=== PATIENT | male | born 1955 | race Caucasian/White ===

== ENCOUNTER 2017-06-21 19:30 | Inpatient (IN) | payer OTHER ==
[~2017-06-21] VITALS: Ht 177.8 cm; Wt 86.2 kg
--- NOTE | 2017-06-21 19:43 | ED AMS/SEIZURE/WEAK/DIZZY ---
History of Present Illness General Chief Complaint: Altered Mental Status Stated Complaint: AMS Source: family, old records, EMS Exam Limitations: confusion Vital Signs & Intake/Output Vital Signs & Intake/Output Vital Signs Date Time Temp Pulse Resp B/P B/P Pulse O2 O2 Flow FiO2 Mean Ox Delivery Rate 06/21 2257 75 155/93 06/21 2152 76 178/99 06/21 2134 97.3 76 16 178/99 97 Room Air 06/21 1956 Room Air 06/21 1934 97.2 77 20 187/111 97 Room Air Allergies Coded Allergies: NO KNOWN ALLERGIES (05/12/13) NKDA PER POST OP ORDER SHEET OF 05/12/13 - S Triage Note: PT BIBA PER FAMILY PT IS VERY CONFUSED, PER FAMILY HE HAS NOT SEEN A DOCTOR IN 4 YEARS. PER FAMILY PT IS AOX4. HX OF HTN AND DM EMS STATES FINGER STICK 123. #18 LAC EST IN THE FIELD Triage Nurses Notes Reviewed? yes Onset: Gradual Duration: constant Timing: recent history Injury Environment: home Severity: severe Severity Numbers: 10 HPI: Patient is a 62-year-old male with a past medical history of coronary artery disease, hypertension, hyperlipidemia, diabetes, right carotid endarterectomy performed approximately 4 years ago in which history is limited due to significant altered mental status on arrival however EMS state that they received a call in which a family member was concerned of talking with the patient over the phone and noted that the patient significantly altered due to his baseline mental status, EMS state the patient was afebrile blood sugar 123 and hypertensive on arrival Family does present to the emergency room in which and sons state that the last time that they saw patient in his normal state of health was [place] They do present concerns of recent alcohol significant use and poorly unkempt hygiene especially to his bilateral lower extremity They state the patient keeps to himself recently due to a significant disagreement in the spring Patient's history is limited due to significant confusion however he states he denies fever chills headache chest pain shortness of breath nausea vomiting abdominal pain (Yohan Waite) Past History Travel History Traveled to [place] past 21 day No Medical History Any Pertinent Medical History? see below for history Cardiovascular: hypertension, hyperlipidemia Endocrine: diabetes History of MRSA: No History of VRE: No History of CDIFF: No Surgical History Surgical History: unobtainable Psychosocial History Who do you live with Spouse Services at Home None What is your primary language Armenian Family History Hx Contributory? No (Yohan Waite) Review of Systems Review of Systems Constitutional: Reports: see HPI, malaise. EENTM: Reports: no symptoms. Respiratory: Reports: no symptoms. Cardiovascular: Reports: no symptoms. GI: Reports: no symptoms. Genitourinary: Reports: no symptoms. Musculoskeletal: Reports: no symptoms. Skin: Reports: see HPI. Neurological/Psychological: Reports: see HPI, confusion. Hematologic/Endocrine: Reports: no symptoms. Immunologic/Allergic: Reports: no symptoms. All Other Systems: Reviewed and Negative (Yohan Waite) Physical Exam Physical Exam General Appearance: no apparent distress, comfortable Head: atraumatic Eyes: Bilateral: normal appearance, PERRL, EOMI. Ears, Nose, Throat: normal pharynx, normal ENT inspection, hearing grossly normal Neck: normal inspection, full range of motion Respiratory: normal breath sounds, chest non-tender, no respiratory distress Cardiovascular: regular rate/rhythm Peripheral Pulses: 2+ radial (R) Gastrointestinal: normal bowel sounds, soft, non-tender Back: normal inspection Neurologic/Psych: no motor/sensory deficits, disoriented x 3 Comments: Right foot and lower extremity SIGNIFICANT noted dark debris AND DIRT Dermatomes decreased sensation noted fourth toe was removed Pedal pulses +2 Left foot and lower extremity notice significant dark debris and dirt decreased dermatome sensation pedal pulse +2 Negative Brudzinski negative Kernig sign Core Measures ACS in differential dx? No CVA/TIA Diagnosis Yes NIH Stroke Scale (24 Hours) NIH Stroke Scale (24 Hours) Response Value Level of Consciousness drowsy 1 LOC Questions answers one correctly 1 LOC Commands obeys one correctly 1 Best Gaze normal 0 Visual [place] no visual loss 0 Facial Paresis partial 2 Motor Arm - Left no drift 0 Motor Arm - Right no drift 0 Motor Leg - Left no drift 0 Motor Leg - Right no drift 0 Limb Ataxia no ataxia 0 Best Language mild to moderate aphasia 1 Dysarthria mild/mod slurring words 1 Total 7 Date Last Known Well 06/18/17 Swallow Evaluation Pass Swallow eval date 06/21/17 Swallow eval time 2142 Sepsis Present: No Sepsis Focused Exam Completed? No (Yohan Waite) Progress Differential Diagnosis: arrythmia, alcohol intoxication, anemia, benign positional vertigo, CVA/stroke, dehydration, drug intoxication, encephalitis, electrolyte imbalance, GI bleed, hypoglycemia, hypoxia, intracranial Hem., intracranial mass/tumor, labrynthitis, meningitis, Meniere's disease, migraine MANCILLA, multiple sclerosis, pneumonia, postural hypotension, presyncope, post- traumatic vertigo, sepsis, seizure disorder, subarachnoid Hem., UTI/pyelo, vertebrobasilar insuff Plan of Care: Orders Procedure Date/time Status Regular Diet 06/22 B Active SPEECH EVALUATION 06/22 1000 Active Occupational Tx Eval & Treat 06/22 1000 Active LIPID PANEL 06/22 0600 Active CBC WITHOUT DIFFERENTIAL 06/22 06 Active BASIC ELECTROLYTES PLUS BUN&CR 06/22 600 Active LACTIC ACID 06/21 225 Complete OXYGEN SETUP (GEN) 06/21 2236 Active Saline Lock 06/21 2236 Active Admit to inpatient 06/21 2236 Active Pathway - chart 06/21 2233 Active Patient Data 06/21 2233 Active Code Status 06/21 2233 Active Patient Data 06/21 222 Active NIH Stroke Scale 06/21 2137 Active Straight Cath 06/21 2104 Active CULTURE,URINE 06/21 2104 Active BLOOD CULTURE 06/21 1956 Active URINE DRUG SCREEN FOR ER ONLY 06/21 1956 Complete URINALYSIS 06/21 1956 Complete TROPONIN LEVEL 06/21 1956 Complete PARTIAL THROMBOPLASTIN TIME 06/21 1956 Complete PROTHROMBIN TIME 06/21 1956 Complete AMMONIA 06/21 1956 Complete LIPASE 06/21 1956 Complete LACTIC ACID 06/21 1956 Complete ETHANOL 06/21 1956 Complete COMPREHENSIVE METABOLIC PANEL 06/21 1956 Complete CBC WITHOUT DIFFERENTIAL 06/21 1956 Complete AMYLASE 06/21 1956 Complete EKG 06/21 194 Active PT Evaluate & Treat 06/21 UNK Active House Staff 06/21 UNK Active VTE Mechanical Prophylaxis 06/21 UNK Active Vital Signs 06/21 UNK Active Telemetry/Child Development Specialist 06/21 UNK Active Intake & Output 06/21 UNK Active Activity/Ambulation 06/21 UNK Active Current Medications Sig/Cristiano Start time Last Medication Dose Stop Time Status Admin Acetaminophen 650 MG Q6P PRN 06/21 2245 AC (Tylenol) Acetaminophen 1,000 MG Q6P PRN 06/21 2245 AC (Ofirmev) Laboratory Tests 06/21/179: Urine Opiates Screen < 100.00, Methadone Screen < 40, Barbiturate Screen < 60, Ur Phencyclidine Scrn < 6.00, Amphetamines Screen < 100, U Benzodiazepines Scrn < 85, Urine Cocaine Screen < 50, Urine Cannabis Screen < 5.00, Urine Color YEL, Urine Clarity HAZY H, Urine pH 6.0, Ur Specific Bearden >= 1.030, Urine Protein 30 H, Urine Ketones 15 H, Urine Nitrite POS H, Urine Bilirubin NEG, Urine Urobilinogen 0.2, Ur Leukocyte Esterase MOD H, Ur Microscopic SEDIMENT EXAMINED , Urine RBC 50-75 H, Urine WBC 50-75 H, Ur Epithelial Cells RARE, Urine Bacteria MOD H, Urine Mucus RARE, Urine Hemoglobin LARGE H, Urine Glucose NEG 06/21/172008: Lactic Acid 1.9 06/21/172008: Anion Gap 14, Estimated GFR > 60, BUN/Creatinine Ratio 16.0, Glucose 124 H, Lactic Acid 1.9, Calcium 9.6, Total Bilirubin 0.6, AST 15 L, ALT 21, Alkaline Phosphatase 82, Ammonia < 9 L, Troponin I < 0.01, Total Protein 7.8, Albumin 4.4, Globulin 3.4, Albumin/Globulin Ratio 1.3, Amylase 84, Lipase 114, PT 11.1, INR 1.06, APTT 31, CBC w Diff NO MAN DIFF REQ, RBC 5.34, MCV 93.9, MCH 31.0, RDW 13.0, MPV 8.7, Gran % 63.3, Lymphocytes % 29.1, Monocytes % 5.3, Eosinophils % 1.8, Basophils % 0.5, Absolute Granulocytes 5.0, Absolute Lymphocytes 2.3, Absolute Monocytes 0.4, Absolute Eosinophils 0.1, Absolute Basophils 0, PUBS MCHC 33.0, Serum Alcohol < 10.0 Microbiology 06/21 2104 URINE ROUT: Urine Culture - ORD 06/21 2100 BLOOD: Blood Culture - RECD 06/21 2009 BLOOD: Blood Culture - RECD Patient on initial examination was afebrile however significantly altered mental status confirmed by family. \No significant meningeal findings at this time however this is of my differential diagnosis, IV fluids will be obtained. Patient has nontender abdomen Patient was moderately following all commands appropriately however became confused at times Patient does have concerns of a right facial droop AND SUSPECTING RECENT CVA ASPIRINA WAS ADMINISTERED AFTER CT SCAN NIH stroke scale was 7 Labetalol was administered for hypertension No criteria for emergent TPA Patient did pass gag reflex and swallow test There is also consideration of alcohol withdrawal and delirium tremens however patient states his last alcoholic beverage was approximately 5 months ago however family has concerns otherwise in which they state that there is a WINE next to his bed Urine Veras does show BACTERURIA, URINE CX PENDING. DISCUSSED ADMISSION WITH DR STEPHENSON. Diagnostic Imaging: Viewed by Me: CT Scan. Radiology Impression: see comments Initial ED EK BPM, NSR, Q WAVE IN ALL LEADS Comments: PATIENT: CHIVO EVANS SR PRESENT AGE: 62 PATIENT ACCOUNT NO: [id number] : 53 LOCATION: [facility] ORDERING PHYSICIAN: Yohan NIEVES SERVICE DATE: 06/21/17 EXAM TYPE: CAT - CT HEAD WO IV CONTRAST EXAMINATION: CT HEAD WITHOUT CONTRAST CLINICAL INFORMATION: Altered mental status COMPARISON: CT neck 03/08/2013 TECHNIQUE: Contiguous axial imaging was performed from the skull base to vertex without intravenous administration of contrast. DLP: 617.67 mGy-cm FINDINGS: Triangular hypodensity involving the left basal ganglia. Extends from the head of the caudate through the lentiform nucleus. There are additional multifocal hypodensity in the centrum semiovale adjacent to the left lateral ventricle superior to the basal ganglia. These are indeterminate for age. These hypodensities were not present on the CT angiogram of the neck of 03/08/2013. Could be subacute to chronic. No hemorrhage. No mass effect. Velasco-white differentiation maintained. Age-appropriate mild atrophy with prominence of ventricles and sulci. There is vascular wall calcification of the internal carotid arteries bilaterally. The osseous structures and soft tissues are normal. The mastoid air cells and visualized portions of the paranasal sinuses are well aerated. IMPRESSION: Hypodensity involving left basal ganglia on the left periventricular white matter. Subacute to chronic. No acute hemorrhage. No mass effect. Could be further evaluated with dynamic MRI imaging. DICTATED BY: Beck Cagle MD DATE/TIME DICTATED:06/21/172044 (Norma NIEVES,Yohan) Departure Departure Disposition: STILL A PATIENT Condition: Guarded Clinical Impression Primary Impression: CVA (cerebral vascular accident) Secondary Impressions: Altered mental state, Hypertension, UTI (urinary tract infection) Referrals: Ana Grace APRN (PCP/Family) Departure Forms: Customer Survey General Discharge Information Admission Note Spoke With: Yvrose Blanton MD Documentation of Exam: Documentation of any treatments & extenuating circumstances including Concerns Regarding Discharge (functional status, medication knowledge or non-compliance, living conditions, etc.) that warrant an admission rather than observation: [ Discussed patient with who agrees a telemetry admission for concerns of CVA, UTI patient requires aspirin administration neurology consultation and MRI carotid ultrasound IV antibiotics blood cultures urine culture currently pending repeat labs] (Yohan Waite) PA/FOAM RUBBER FABRICATOR Co-Sign Statement Statement: ED Attending supervision documentation- x I saw and evaluated the patient. I have also reviewed all the pertinent lab results and diagnostic results. I agree with the findings and the plan of care as documented in the PA's/FOAM RUBBER FABRICATOR's documentation. Altered mental status / confusion with basal ganglia hypodensity [] I have reviewed the ED Record and agree with the PA's/FOAM RUBBER FABRICATOR's documentation. [] Additions or exceptions (if any) to the PAs/FOAM RUBBER FABRICATOR's note and plan are summarized below: [] (Nae HUNTER,Rolo) Critical Care Note Critical Care Note Critical Care Time: 75-104 min (Yohan Waite)
[2017-06-21 20:28] LABS: ABSOLUTE BASOPHIL COUNT 0 /CUMM (0.0-0.2); ABSOLUTE EOSINOPHIL COUNT 0.1 /CUMM (0.0-0.7); ABSOLUTE LYMPH COUNT 2.3 /CUMM (1.2-3.4); ABSOLUTE MONOCYTE COUNT 0.4 /CUMM (0.10-0.60); BASOPHIL % 0.5 % (0.0-2.0); EOSINOPHIL % 1.8 % (0-5); GRANULOCYTE % 63.3 % (42.2-75.2); HEMATOCRIT 50.1 % (42-52); MEAN CORPUSCULAR VOLUME 93.9 FL (80.0-94.0); MEAN PLATELET VOLUME 8.7 FL (7.4-10.4); PLATELET COUNT 203 /CUMM (130-400); RED BLOOD CELL CT 5.34 /CUMM (4.70-6.10); WHITE BLOOD CELL COUNT 7.9 /CUMM (4.8-10.8)
[2017-06-21 20:42] LABS: PT 11.1 SEC (9.4-12.5); PTT 31 SEC (25-37)
--- NOTE | 2017-06-21 20:54 | CT SCAN REPORT ---
EXAMINATION: CT HEAD WITHOUT CONTRAST CLINICAL INFORMATION: Altered mental status COMPARISON: CT neck 03/08/2013 TECHNIQUE: Contiguous axial imaging was performed from the skull base to vertex without intravenous administration of contrast. DLP: 617.67 mGy-cm FINDINGS: Triangular hypodensity involving the left basal ganglia. Extends from the head of the caudate through the lentiform nucleus. There are additional multifocal hypodensity in the centrum semiovale adjacent to the left lateral ventricle superior to the basal ganglia. These are indeterminate for age. These hypodensities were not present on the CT angiogram of the neck of 03/08/2013. Could be subacute to chronic. No hemorrhage. No mass effect. Velasco-white differentiation maintained. Age-appropriate mild atrophy with prominence of ventricles and sulci. There is vascular wall calcification of the internal carotid arteries bilaterally. The osseous structures and soft tissues are normal. The mastoid air cells and visualized portions of the paranasal sinuses are well aerated. IMPRESSION: Hypodensity involving left basal ganglia on the left periventricular white matter. Subacute to chronic. No acute hemorrhage. No mass effect. Could be further evaluated with dynamic MRI imaging.
--- NOTE | 2017-06-21 21:00 | RADIOLOGY REPORT ---
EXAMINATION: XR CHEST CLINICAL INFORMATION: Altered mental status COMPARISON: None. TECHNIQUE: PA and lateral views of the chest were obtained. FINDINGS: Lungs are clear. No pulmonary vascular congestion. There is no pleural effusion. The heart size is normal. The cardiac and mediastinal contours are normal. There are calcifications of the thoracic aorta. There are multilevel degenerative changes of dorsal spine. IMPRESSION: Normal chest.
--- NOTE | 2017-06-21 22:37 | History & Physical ---
Caroline Dhillon MD,[facility] 06/21/17 2236: General Information and HPI MD Statement: I have seen and personally examined CRISTINACHIVO Christine and documented this H&P. The patient is a 62 year old M who presented with a patient stated chief complaint of AMS and change in speech. Source of Information: patient, family, old records Exam Limitations: unable to give history History of Present Illness: Patient is a 62-year-old male with a PMH of CAD, HTN, HLip, DM, right carotid endarterectomy performed (2012 for nonsymptomatic severe carotid stenosis) was BIBA to hospital for evaluation of the altered mental status. Patient was alert and partially oriented, has limited ability to verbalize answers. was at bedside and was interviewed separately to take history. Patient lives with and son in the same house but was living separately in his room and not talking to them due to some family disagreement. At the time of interview patient had no complaint and denied any medical problem. According to patient's he was doing his daily activities ( unemployed - walking normal, getting mails and etc) until afternoon, she didn't notice any change until patient's brother called and informed her that patient was having hard time talking over the phone. then noticed a new facial drooling and right side weakness in his arm. Patient initially refused to come to hospital but family called EMS and brought him over. EMS reported BS of 123 and increased BP at the time of arrival. Patient talks to his brother once/week and his brother also noted one episode of similar symptoms 2-3 days ago. also noted he was not taking any of his medication/visiting any doctors for the last 2 years. Allergies/Medications Allergies: Coded Allergies: NO KNOWN ALLERGIES (05/12/13) NKDA PER POST OP ORDER SHEET OF 05/12/13 - SJS Past History Travel History Traveled to [place] past 21 day No Medical History Cardiovascular: hypertension, hyperlipidemia Endocrine: diabetes History of MRSA: No History of VRE: No History of CDIFF: No Surgical History Surgical History: unobtainable Past Family/Social History Psychosocial History Services at Home: None Review of Systems Review of Systems Constitutional: Reports: see HPI. Exam & Diagnostic Data Last 24 Hrs of Vital Signs/I&O Vital Signs Date Time Temp Pulse Resp B/P B/P Pulse O2 O2 Flow FiO2 Mean Ox Delivery Rate 06/22 0144 98.4 76 18 160/100 96 Room Air 06/22 0107 97.5 73 14 167/98 97 06/21 2257 75 155/93 06/21 2152 76 178/99 06/214 97.3 76 16 178/99 97 Room Air 06/21 1956 Room Air 06/21 1934 97.2 77 20 187/111 97 Room Air Intake & Output 06/22 0800 06/22 0000 06/21 1600 Intake Total Output Total Balance Patient 190 lb 190 lb Weight Weight Estimated Estimated Measurement Method Physical Exam General Appearance Alert, Cooperative, No Acute Distress, partial oriented Skin No Significant Lesion Skin Temp/Moisture Exam: Warm/Dry Sepsis Skin Exam (color): Normal for Ethnicity HEENT Atraumatic, EOMI, Mucous Membr. moist/pink Neck No JVD Cardiovascular Regular Rate, Normal S1, Normal S2 Lungs Clear to Auscultation Abdomen Normal Bowel Sounds, Soft, No Tenderness Neurological motor dysartheria, facial drooping in the right side, right hand and leg motor 5/5, normal and comparable to left side, right knee +2 reflex, left knee hyporeflex, sensory of bilateral LE below knee lost, 4th toe missing in the right foot. reluctant to follow the orders pupils bilateral reactive to light Extremities bilateral LE poor hygene, crusted, calus in the feet, right foot missing 4th toe Last 24 Hrs of Labs/Lasha: Laboratory Tests 06/22/17 06: Troponin I Cancelled 06/22/17 06: Anion Gap 12, Estimated GFR > 60, BUN/Creatinine Ratio 14.4, Troponin I 0.03, Triglycerides 110, Cholesterol 218 H, LDL Cholesterol, Calc 160 H, HDL Cholesterol 36 L, Cholesterol/HDL Ratio 6 H, CBC w Diff Pending, WBC Pending, RBC Pending, Hgb Pending, Hct Pending, MCV Pending, MCH Pending, RDW Pending, Plt Count Pending, MPV Pending, PUBS MCHC Pending 06/21/172108: Urine Opiates Screen < 100.00, Methadone Screen < 40, Barbiturate Screen < 60, Ur Phencyclidine Scrn < 6.00, Amphetamines Screen < 100, U Benzodiazepines Scrn < 85, Urine Cocaine Screen < 50, Urine Cannabis Screen < 5.00, Urine Color YEL, Urine Clarity HAZY H, Urine pH 6.0, Ur Specific [place] >= 1.030, Urine Protein 30 H, Urine Ketones 15 H, Urine Nitrite POS H, Urine Bilirubin NEG, Urine Urobilinogen 0.2, Ur Leukocyte Esterase MOD H, Ur Microscopic SEDIMENT EXAMINED , Urine RBC 50-75 H, Urine WBC 50-75 H, Ur Epithelial Cells RARE, Urine Bacteria MOD H, Urine Mucus RARE, Urine Hemoglobin LARGE H, Urine Glucose NEG 06/21/172008: Lactic Acid 1.9 06/21/17 2009: Anion Gap 14, Estimated GFR > 60, BUN/Creatinine Ratio 16.0, Glucose 124 H, Lactic Acid 1.9, Calcium 9.6, Total Bilirubin 0.6, AST 15 L, ALT 21, Alkaline Phosphatase 82, Ammonia < 9 L, Troponin I < 0.01, Total Protein 7.8, Albumin 4.4, Globulin 3.4, Albumin/Globulin Ratio 1.3, Amylase 84, Lipase 114, PT 11.1, INR 1.06, APTT 31, CBC w Diff NO MAN DIFF REQ, RBC 5.34, MCV 93.9, MCH 31.0, RDW 13.0, MPV 8.7, Gran % 63.3, Lymphocytes % 29.1, Monocytes % 5.3, Eosinophils % 1.8, Basophils % 0.5, Absolute Granulocytes 5.0, Absolute Lymphocytes 2.3, Absolute Monocytes 0.4, Absolute Eosinophils 0.1, Absolute Basophils 0, PUBS MCHC 33.0, Serum Alcohol < 10.0 Microbiology 06/21 2109 URINE ROUT: Urine Culture - RECD 06/21 2100 BLOOD: Blood Culture - RECD 06/21 2009 BLOOD: Blood Culture - RECD Assessment/Plan Assessment: 62 y M presented for evaluation of AMS facial drooping right leg reflex higher compared to left side PMH of CAD, HTN, HLip, DM, right carotid endarterectomy performed (2012 for nonsymptomatic severe carotid stenosis) VS, Ph Ex at admission: BP 187/111, MT 77, no fever Labs at admission: C BC insignificant, Hgb 16.5, BEP insignificant, glucose 124, AST 15, ammonia less than 9, U tox negative, Serum alcohol negative, UA active, positive for protein and ketones, nitrate and leuk esterase positive, WBC and RBC many Imaging at admission: CXR: Nl head CT: Hypodensity involving left basal ganglia on the left periventricular white matter. Subacute to chronic. No acute hemorrhage. No mass effect. Could be further evaluated with dynamic MRI imaging. Head and neck CTA: - Redemonstrated possible acute to subacute infarct within the left basal ganglia, anterior limb of the left internal capsule, and left periventricular white matter. Additional probable chronic microangiopathy and probable chronic lacunar infarcts within the right left thalamus. These findings can be definitively aged with MRI. - The proximal half of the left M1 middle cerebral artery segment is occluded. There is reconstitution of the distal half of the left M1 MCA which is markedly small in caliber giving rise to small caliber left MCA sylvian branches which remain patent. Findings are new in comparison to the prior study. - Atherosclerotic disease results in an 80-90% stenosis of the proximal left internal carotid artery that is slightly progressed. - There are surgical clips adjacent to the right carotid bifurcation following endarterectomy. Intimal hyperplasia and/or lipid rich atherosclerotic plaque results in a 60-70% stenosis of the distal right common carotid artery that has progressed. Patient was admitted to telemetry floor for management of following conditions: Altered mental status stroke Despite family were concerned about alcohol intake blood alcohol level was low. CT of the head suggesting stroke. CTA was ordered later with findings as noted above. Patient also had history of carotid arterectomy. Timing of the stoke was unknown and most probably out of window for thrombolysis. - admit patient to tele floor - NIH q 2, neurochecks - Asprin, hgih dose statin - MRI head - neuro consult - Neuro surgery consutl for carotid stenosis - failed swallow evalu - PT/OT eval - ECHo in am UTI UA was active, we will send urine culture - ceftriaxone IV - follow cultures Possible Alcohol abuse We will put patient on CIWA diagnostic. If scores high we will start on Ativan UTI UA was active, patient did not have any symptoms, we will send urine culture and empirically start antibiotic treatment. DVT Ppx: ALPS, Pharmacological NPO for now FC As Ranked By This Provider Problem List: 1. CVA (cerebral vascular accident) 2. Altered mental state 3. UTI (urinary tract infection) Core Measures/Misc (03/11) Acute Coronary Syndrome ACS Diagnosis: No Congestive Heart Failure Congestive Heart Failure Diagnosis No Cerebrovascular Accident CVA/TIA Diagnosis: Yes Date Last Known Well: 06/18/17 Swallow Evaluation Fail VTE (View Protocol) VTE Risk Factors Age>40 No Mechanical VTE Prophylaxis d/t N/A MechProphylax Ordered No VTE Pharm Prophylaxis d/t NA PharmProphylax ordered Sepsis (View protocol) Sepsis Present: No Cinthia Martinez MD 06/22/17 0044: Resident Review Statement Resident Statement: examined this patient, discussed with marketing intern, agreed with marketing intern, discussed with family, reviewed EMR data (avail), discussed with nursing Other Findings: Patient is a 62 YO EX-SMOKER Male with PMH significant for HTN, HLD, diabetes, right carotid endarterectomy BIBA to [place] [facility] after found to be any confused state. Patient hasn't been in his usual state of health until this Marie. History is obtained from his . Since this September 2016 due to internal family issues patient hasn't been speaking to his although this didn't seem home. Apparently they saw patient being walking normally this am. Brother used to call regularly found him to be confused since . According to the family patient is not on any medications and not following up with physicians for the past 2yrs. He reportedly had slurring of speech this evening and found to be inexpressive. family history of Occipital aneurysm of head in mother Vital signs at presentation Afebrile, pulse rate 77, blood pressure 187/111 mmHg, on room air Physical exam Alert to person and time, not to person HEENT: PERRLA Heart: S1-S2 normal, systolic murmur present Lungs: Clear to auscultation Abdomen: Normal bowel sounds, soft and nontender Neuro: Right facial droop present, other cranial loss were intact (unable to follow commands), strength 5 at 5 all extremities, sensations present in both upper extremities, sensory loss and lower extremities, reflexes present, tone normal Lower extremities: Unkempt with calluses on both plantar surfaces near the metatarsophalangeal joints, superadded fungal infection. No edema/cyanosis Labs Normal white count, H&H 16/50, Lyrica 203, sodium 139, potassium 3.9, chloride 102, bicarbonate 23, BUN/creatinine 16/1.0, AST 15, ALT 21, total bili 0.6. Imaging CT head did show hypodensity involving the left basal ganglia on the left periventricular white matter which could represent subacute to chronic stroke CT angio of head and neck - Redemonstrated possible acute to subacute infarct within the left basal ganglia, anterior limb of the left internal capsule, and left periventricular white matter. Additional probable chronic microangiopathy and probable chronic lacunar infarcts within the right left thalamus. These findings can be definitively aged with MRI. - The proximal half of the left M1 middle cerebral artery segment is occluded. There is reconstitution of the distal half of the left M1 MCA which is markedly small in caliber giving rise to small caliber left MCA sylvian branches which remain patent. Findings are new in comparison to the prior study. - Atherosclerotic disease results in an 80-90% stenosis of the proximal left internal carotid artery that is slightly progressed. - There are surgical clips adjacent to the right carotid bifurcation following endarterectomy. Intimal hyperplasia and/or lipid rich atherosclerotic plaque results in a 60-70% stenosis of the distal right common carotid artery that has progressed. Assessment Patient is a 62 YO M with PMH of DM, HTN, HLD lost compliance for the past 2 yrs presented with expressive aphasia and right facial droop of unknown duration. VS did show high blood pressure 187/111mmHg better after giving IV labetalol, labs are unremarkable. CT head and CT angio did show MCA stroke with Left MCA occlusion in M1 territory with reconstitution of distal half these findings can be chronic. There is hypodensity in left basal ganglia which could represent subacute vs acute stroke. Spoke with Y-axis to understand if there is any role of neurological intervention as there is complete occlusion of MCA. Instructed no urgency for transfer as the timeline is already crossed and may not potentially benefit from prolonged retrieval. Admit to telemetry floor Problem list 1. Subacute/chronic ischemic stroke with left MCA occlusion on CT angio 2. 80-90% of Left carotid stenosis 3. Alcohol withdrawal 4. Hypertension 5. Diabetes 6. ?? UTI Subacute left MCA ischemic stroke unknown timeline. Noncompliant with antihypertensives and antiepileptics for the past 2 years. Family history of aneurysm of brain. Underwent right carotid endarterectomy in the past. Failed bedside swallow evaluation * Aspirin and high-dose statin * Neurology consult * MRI of brain for further characterization and ruling out aneurysm * CT angiogram of neck consistent with 80-90% stenosis of left carotid artery - vascular surgery consult * Neurochecks every 4hrs * Formal swallow evaluation in a.m. Alcohol withdrawal Patient has been consuming alcohol on a daily basis as per the family. * Diagnosed CIWA Hypertension Received 1 dose of IV labetalol in ER. Goal is to maintain 140-160/90mmHg. * Consider IV antihypertensives if needed * start on oral medications once swallow evaluation done Diabetes Not on medications since long time. Obtain HbA1C. * Check HbA1C * Accuchecks with insulin sliding scale - NPO scale DVT prophylaxis SC heparin Code status full Code Harvinder HUNTER, 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 Patient lives in the same apartment as his , but there has been a dispute between them leading to the patient not interacting with . provides the history. Patient was last seen normal this morning. However, later during the day when patient's brother called him over the phone, he noted patient was slurring and was unable to complete his statements or thought process. He had difficulty articulating his thoughts. So he called EMS, patient's sugar was 123, he was noted to be hypertensive. states, patient was in his [facility] until [place]. She does report concerns of alcohol dependence although patient denies it, unkempt hygiene not taking a shower with bilateral feet with callus and possible fungal infection. also feels he may be confabulating, but when she briefly stepped out of the room, patient's mentation or actions did not change. Brother did notice his slurred speech 2 days prior but attributed it to his alcohol use. Vitals stable except for BP 178/99 --> 155/93. Exam: NIH stroke scale was 7 in the ER. Awake, alert, slurred speech with expressive aphasia, able to follow few commands and answer few questions. Right facial droop noted, limited cranial nerve exam, tongue/ uvula central, not able to follow many commands, no pronator drift, power RUE 4/5, LUE 5/5, Bilateral LE 5/5, unable to assess sensation, tone normal, reflexes 2+, plantars unequivocal. Unable to completely assess visual dunham as patient does not follow commands, but EOMI intact. Chest b/l clear, Heart S1S2 regular, systolic murmur+, LE: unkempt with huge callus formation on plantar aspect of both feet, right foot 4th toe absent, superimposed fungal infection of feet, dry black scaly skin over both legs. Labs unremarkable except glucose 124, trop neg. UA proteinuria, positive ketones , positive nitrite, moderate leukocyte esterase, RBC 50-75, WBC 50-75, moderate bacteria. Utox neg. Alcohol <10. CXR: neg. CT head: hypodensity involving left basal ganglia on left periventricular white matter, subacute to chronic. No acute hemorrhage, no mass effect. Head and Neck CTA: acute to subacute infarct within left basal ganglia, anterior limb of left internal capsule, left periventricular white matter. Proximal half of left M1 MCA is occluded, proximal left ICA 80-90% stenosis. EKG: Sinus rhythm, Q-waves in inferior leads, Qtc 432. Echo (2011): EF > 60%, moderate LVH, stage 2 diastolic dysfunction. Patient received IV labetalol in the ER, he did not receive tPA as he was out of the window period. Failed bedside swallow eval. Assessment and plan: 1. Altered mentation, expressive aphasia 2. Acute to subacute left MCA ischemic stroke 3. Encephalopathy related to UTI 4. Alcohol dependence, watch for withdrawal symptoms 5. History of T2DM 6. Essential hypertension 7. Noncompliance 8. Family h/o brain aneurysm - Admit to Telemetry - Neurochecks Q2 - Fall, aspiration precautions - NPO, swallow/speech eval in AM - Aspirin and high dose statin - Check TSH, free T4, lipid panel, HbA1c - Obtain echo, rule out ACS - Neuro and Cardio consult - PT/ OT eval - Obtain Vascular consult given above CTA findings - Urine and blood culture - Continue IV ceftriaxone for now. - Consider discontinuing antibiotics if patient remains afebrile and UC shows no growth - [facility] protocol, watch for withdrawal symptoms - We discussed CTA neck findings with Neurointensivist at [facility], given his symptoms are ongoing over 24 hours, no acute intervention needed. - MRI in AM - Keep SBP ~ 140 mmHg - Monitor accucheks, place on insulin SS. Needs outpatient Endo consult. - Consider initiation of CASPER-I - Foot/ wound care - Maintain Sitter as patient tends to move around, remove lines. DVT ppx Lovenox. Full code.
[2017-06-22 01:44] VITALS: BP 160/100
--- NOTE | 2017-06-22 02:09 | CT SCAN REPORT ---
EXAMINATION: CT ANGIOGRAM NECK WITH CONTRAST CT ANGIOGRAM BRAIN WITH CONTRAST CLINICAL INFORMATION: Right facial droop and aphasia. COMPARISON: Head CT June 21, 2017. CTA neck March 08, 2013. TECHNIQUE: Test bolus sequences followed by intravenous administration 120 mL of Optiray 350. Helical imaging was performed in the axial plane from the thoracic inlet to the skull vertex. Delayed postcontrast imaging of the head was also performed. The data was processed at the biotechnologist workstation for generation of MIP sequences. Angled MIPs and volume rendered reformatted images were also generated at an offline 3D workstation. Stenoses are assessed in accordance with NASCET criteria unless otherwise indicated. FINDINGS: BRAIN: As discussed on the previous head CT there is hypodensity within the left basal ganglia and anterior limb of the left internal capsule as well as the left periventricular white matter that could reflect an acute to subacute infarct in light of the patient's symptoms. There are lacunar infarcts within the thalami bilaterally that are likely chronic. Scattered hypoattenuation throughout the remaining supratentorial white matter may reflect chronic microangiopathy though is nonspecific. There is no pathologic enhancement intracranially. There is no hydrocephalus or extra-axial surface collection. Maxillary and mandibular periapical disease. Paranasal sinuses and mastoid air cells remain well-aerated. CERVICAL SOFT TISSUES AND LUNG APICES: There are no significant soft tissue findings within the neck. There is cervical spondylosis. There is a right vallecular cyst. ARCH ANATOMY: There is a classic 3 vessel configuration of the aortic arch. Proximal arch vessels are non-stenotic. The vertebral arteries are codominant. No significant ostial stenosis is visualized on either side. NECK CTA: Mild atherosclerotic disease along the course of the vertebral arteries bilaterally resulting in mild segmental luminal narrowing. There are surgical clips adjacent to the right carotid bifurcation following endarterectomy. Intimal hyperplasia and/or lipid rich atherosclerotic plaque results in a 60-70% stenosis of the distal right common carotid artery. The right carotid bifurcation is widely patent as is the right cervical internal carotid artery throughout its course. Atherosclerotic disease results in an 80-90% stenosis of the proximal left internal carotid artery that is slightly progressed. Remainder of the left cervical ICA is widely patent. BRAIN CTA: -type DIRECTOR OF EMPLOYER SERVICES on the right side. The proximal half of the left M1 middle cerebral artery segment is occluded. There is reconstitution of the distal half of the left M1 MCA which is small in caliber giving rise to small caliber left MCA sylvian branches which remain patent. Findings are new in comparison to the prior study. The right middle cerebral artery complex and the anterior cerebral artery complexes are widely patent. asphalt distributor operator are widely patent. Vertebrobasilar system remains widely patent. Timing of the contrast bolus allows assessment of the major dural venous sinuses, which all opacify normally. IMPRESSION: - Redemonstrated possible acute to subacute infarct within the left basal ganglia, anterior limb of the left internal capsule, and left periventricular white matter. Additional probable chronic microangiopathy and probable chronic lacunar infarcts within the right left thalamus. These findings can be definitively aged with MRI. - The proximal half of the left M1 middle cerebral artery segment is occluded. There is reconstitution of the distal half of the left M1 MCA which is markedly small in caliber giving rise to small caliber left MCA sylvian branches which remain patent. Findings are new in comparison to the prior study. - Atherosclerotic disease results in an 80-90% stenosis of the proximal left internal carotid artery that is slightly progressed. - There are surgical clips adjacent to the right carotid bifurcation following endarterectomy. Intimal hyperplasia and/or lipid rich atherosclerotic plaque results in a 60-70% stenosis of the distal right common carotid artery that has progressed.
--- NOTE | 2017-06-22 05:35 | Admission Certification ---
Admission Certification Certification Statement - As attending physician, I certify that at the time of - admission, based on clinical presentation, severity of - symptoms, need for further diagnostic testing and - therapeutic interventions, and risk of adverse outcomes - without in-hospital treatment, in my clinical assessment, - this patient requires an acute hospital stay for a minimum - of two nights or longer. I have also considered psychsocial - factors such as support system, advanced age, financial - issues, cognitive issues, and failed out-patient treatments, - past re-admission history, safety of patient, and lack of - compliance as applicable. Specific rationale supporting this admission is: Acute to subacute ischemic stroke
[2017-06-22 07:08] VITALS: BP 160/98
--- NOTE | 2017-06-22 07:18 | PN- Housestaff ---
Adams HUNTER,[facility] 06/22/17 0718: Subjective Follow-up For: Ischemic stroke Subjective: I saw and examined the patient. Patient was lying in bed. Patient has difficulty articulating articulating words., Follows most commands. Oriented to time, place and person. Review of Systems Constitutional: Reports: see HPI. Objective Last 24 Hrs of Vital Signs/I&O Vital Signs Date Time Temp Pulse Resp B/P B/P Pulse O2 O2 Flow FiO2 Mean Ox Delivery Rate 06/22 0708 97.1 75 18 160/98 97 Room Air 06/22 0144 98.4 76 18 160/100 96 Room Air 06/22 0107 97.5 73 14 167/98 97 06/21 2257 75 155/93 06/21 2152 76 178/99 06/21 2134 97.3 76 16 178/99 97 Room Air 06/21 195 Room Air 06/21 193 97.2 77 20 187/111 97 Room Air Intake & Output 06/22 1600 06/22 0800 06/22 0000 Intake Total Output Total Balance Patient 190 lb 190 lb Weight Weight Estimated Estimated Measurement Method Physical Exam General Appearance: Alert, Cooperative, No Acute Distress Neurological: Normal Gait, Normal Tone, Sensation Intact, Cranial Nerves 3-12 NL , Reflexes 2+, nonfluent aphasia good comprehension, unable to namme common objects, able to follow most commonds, unable to protude tounge, R facial droop Other Physical Findings: Extremities: Venous stasis hyper pigmentary changes in the lower legs and feet, right fourth toe amputation, calluses extending from between the first and second digit to the sole of the foot bilaterally Elongated toenails Current Medications: Current Medications Sig/Cristiano Start time Last Medication Dose Route Stop Time Status Admin Acetaminophen 650 MG Q6P PRN 06/21 2245 AC PO Acetaminophen 1,000 MG Q6P PRN 06/21 224 AC IV Aspirin 325 MG DAILY 06/22 1426 AC PO Aspirin 300 MG DAILY 06/22 1000 DC RI Aspirin 0 .STK-MED ONE 06/21 2151 DC PO Aspirin 325 MG ONCE ONE 06/21 2145 DC 06/21 PO 06/21 Atorvastatin Calcium 80 MG 1700 06/22 1700 AC PO Ceftriaxone Sodium 1,000 MG 2200 06/22 2200 AC IV Ceftriaxone Sodium 0 .STK-MED ONE 06/21 2211 DC .ROUTE Ceftriaxone Sodium 1,000 MG ONCE ONE 06/21 2200 DC 06/21 IV 06/21 Dextrose/Sodium 1,000 ML Q13H 06/22 0630 06/22 Chloride IV 0804 Heparin Sodium 5,000 UNIT Q8 06/22 0023 AC 06/22 (Porcine) SC 1310 Insulin Human Regular 0 Q6 06/22 0012 AC SC Labetalol HCl 0 .STK-MED ONE 06/21 2151 DC IV Labetalol HCl 5 MG ONCE ONE 06/21 2145 DC 06/21 IV 06/21 Lorazepam 0 .STK-MED ONE 06/21 2133 DC .ROUTE Lorazepam 1 MG ONCE ONE 06/21 2130 DC 06/21 IV 06/21 Sodium Chloride 1,000 ML BOLUS ONE 06/21 2000 DC 06/21 IV 06/21 Last 24 Hrs of Lab/Lasha Results Last 24 Hrs of Labs/Mics: Laboratory Tests 06/22/17 06: Troponin I Cancelled 06/22/17 0605: Anion Gap 12, Estimated GFR > 60, BUN/Creatinine Ratio 14.4, Hemoglobin A1c 7.6 H, Troponin I 0.03, Triglycerides 110, Cholesterol 218 H, LDL Cholesterol, Calc 160 H, HDL Cholesterol 36 L, Cholesterol/HDL Ratio 6 H, CBC w Diff NO MAN DIFF REQ, RBC 4.98, MCV 93.9, MCH 31.6 H, RDW 13.0, MPV 9.0, Gran % 60.8, Lymphocytes % 30.1, Monocytes % 6.5, Eosinophils % 2.0, Basophils % 0.6, Absolute Granulocytes 4.5, Absolute Lymphocytes 2.2, Absolute Monocytes 0.5, Absolute Eosinophils 0.1, Absolute Basophils 0, PUBS MCHC 33.7 06/21/172108: Urine Opiates Screen < 100.00, Methadone Screen < 40, Barbiturate Screen < 60, Ur Phencyclidine Scrn < 6.00, Amphetamines Screen < 100, U Benzodiazepines Scrn < 85, Urine Cocaine Screen < 50, Urine Cannabis Screen < 5.00, Urine Color YEL, Urine Clarity HAZY H, Urine pH 6.0, Ur Specific Alsen >= 1.030, Urine Protein 30 H, Urine Ketones 15 H, Urine Nitrite POS H, Urine Bilirubin NEG, Urine Urobilinogen 0.2, Ur Leukocyte Esterase MOD H, Ur Microscopic SEDIMENT EXAMINED , Urine RBC 50-75 H, Urine WBC 50-75 H, Ur Epithelial Cells RARE, Urine Bacteria MOD H, Urine Mucus RARE, Urine Hemoglobin LARGE H, Urine Glucose NEG 06/21/172008: Lactic Acid 1.9 06/21/172008: Anion Gap 14, Estimated GFR > 60, BUN/Creatinine Ratio 16.0, Glucose 124 H, Lactic Acid 1.9, Calcium 9.6, Total Bilirubin 0.6, AST 15 L, ALT 21, Alkaline Phosphatase 82, Ammonia < 9 L, Troponin I < 0.01, Total Protein 7.8, Albumin 4.4, Globulin 3.4, Albumin/Globulin Ratio 1.3, Amylase 84, Lipase 114, PT 11.1, INR 1.06, APTT 31, CBC w Diff NO MAN DIFF REQ, RBC 5.34, MCV 93.9, MCH 31.0, RDW 13.0, MPV 8.7, Gran % 63.3, Lymphocytes % 29.1, Monocytes % 5.3, Eosinophils % 1.8, Basophils % 0.5, Absolute Granulocytes 5.0, Absolute Lymphocytes 2.3, Absolute Monocytes 0.4, Absolute Eosinophils 0.1, Absolute Basophils 0, PUBS MCHC 33.0, Serum Alcohol < 10.0 Microbiology 06/21 2109 URINE ROUT: Urine Culture - RECD 06/21 2100 BLOOD: Blood Culture - RES 06/21 2009 BLOOD: Blood Culture - RES Assessment/Plan Assessment: Patient is a 62 y old M with PMH of DM, HTN, HLD; no compliance for the past 2 yrs presented with expressive aphasia and right facial droop of unknown duration. Vital sign on presentation did show high blood pressure 187/111mmHg better after giving IV labetalol, labs were unremarkable. CT head and CT angio did show MCA stroke with Left MCA occlusion in M1 territory with reconstitution of distal half these findings can be chronic. There is hypodensity in left basal ganglia which could represent subacute vs acute stroke. #Subacute left MCA ischemic stroke unknown timeline. presented with expressive aphasia, Noncompliant with antihypertensives and antiepileptics for the past 2 years. Family history of aneurysm of brain. Underwent right carotid endarterectomy in the 2013. Failed bedside swallow evaluation * Aspirin, high-dose statin and s/q heparin * Neurology consulted, reccs appreciated * f/u Brain MRI without contrast * Neurochecks every 2hrs * f/u Modified barium swallow * PT/OT eval pt might need STR * Stroke education #Left carotid stenosis Of note pt is s/p right carotid endarterectomy [place] [address] Schmidt for asymptomatic carotid stenosis * CT angiogram of neck consistent with 80-90% stenosis of left carotid artery * Follow-up ultrasound carotid * Consult placed with Dr. Schmidt for eventual left carotid endarterectomy #Alcohol withdrawal :Patient has been consuming alcohol on a daily basis as per the family. CIWA running low 0,3,3 * low dose CIWA #Hypertension Received 1 dose of IV labetalol in ER. Goal is to maintain 140-160 /90mmHg. * Permissive hypertension for 24 hours * Consider antihypertensives after passing swallow eval #UTI Patient dirty UA and was started on ceftriaxone IV * Continue for now and follow-up urine cultures #Diabetes Not on medications since long time. * Hba1c 7.6 * Insulin SS * Endo consulted #DVT prophylaxis SC heparin #Code status full Code Problem List: 1. Carotid artery stenosis 2. CVA (cerebral vascular accident) 3. Altered mental state Pain Ratin Pain Location: n/a Pain Goal: Pain 4 or less Pain Plan: prn Tomorrow's Labs & Rationales: cbc bep Becky Winchseter MD 06/22/17 1229: Attending MD Review Statement Attending Statement Attending MD Statement: examined this patient, discuss w/resident/PA/BUS DRIVER, agreed w/resident/PA/BUS DRIVER, reviewed EMR data (avail) Attending Assessment/Plan: 62M PMH HTN, DM, PVD, HLD, alcohol dependence, right carotid endartectomy admitted after presenting with confusion and expressive aphasia in the setting of acute left MCA stroke, not in window for tPA or endovascular intervention, failed initial bedside swallow exam, with 80-90% stenosis of left carotid artery. Patient still with expressive aphasia this morning. He has no complaints. Cranial nerve exam is intact, except for inability to protrude tongue, though it is unclear if he is unable to complete the task or if he does not understand the instruction. Motor and sensation is intact, as are cerebellar signs. 1. Acute left MCA stroke 2. Left carotid stenosis 3. Expressive aphasia 4. PVD Plan - Continue on telemetry - Continue RI ASA - Swallow evaluation - Will start statin when able to swallow - Vascular surgery consult - Follow neurology and cardiology recommendations - Permissive hypertension for 24 hours - PT/OT - DVT PPx
[2017-06-22 08:38] LABS: ABSOLUTE BASOPHIL COUNT 0 /CUMM (0.0-0.2); ABSOLUTE EOSINOPHIL COUNT 0.1 /CUMM (0.0-0.7); ABSOLUTE GRANULOCYTE CT 4.5 /CUMM (1.4-6.5); ABSOLUTE LYMPH COUNT 2.2 /CUMM (1.2-3.4); ABSOLUTE MONOCYTE COUNT 0.5 /CUMM (0.10-0.60); BASOPHIL % 0.6 % (0.0-2.0); GRANULOCYTE % 60.8 % (42.2-75.2); HEMATOCRIT 46.7 % (42-52); MEAN CORPUSCULAR HGB 31.6 PG (27.0-31.0); MEAN CORPUSCULAR HGB CONC 33.7 G/DL (33.0-37.0); MEAN CORPUSCULAR VOLUME 93.9 FL (80.0-94.0); PLATELET COUNT 186 /CUMM (130-400); RED BLOOD CELL CT 4.98 /CUMM (4.70-6.10); WHITE BLOOD CELL COUNT 7.3 /CUMM (4.8-10.8)
--- NOTE | 2017-06-22 11:13 | Cons- Neurology ---
General Information and HPI Consulting Request Date of Consult: 06/22/17 Requested By: Harvinder HUNTER,Yvrose Reason for Consult: stroke Source of Information: patient, EMR, med housestaff Exam Limitations: pt aphasic History of Present Illness: 62-year-old man with a history of diabetes mellitus, hypertension, hyperlipidemia, right carotid endarte[place] [address] Schmidt for asymptomatic carotid stenosis. He has reportedly not been medication adherent for at least the past 2 years. Apparently lives with his and son but has limited communications with them. Reportedly when his brother was speaking to him on the phone he noticed the patient was having trouble speaking. He was Brought to [facility] where a head CT showed a subacute left MCA territory infarct. He was admitted for further management. He was reportedly found to be unkempt with poor hygiene. Family reported alcoholism. He has been placed on a CIWA protocol. Tox screen was negative. He is a former cigarette smoker. Allergies/Medications Allergies: Coded Allergies: NO KNOWN ALLERGIES (05/12/13) NKDA PER POST OP ORDER SHEET OF 05/12/13 - [facility] Home Med List: No Known Home Medications Current Medications: Current Medications Sig/Cristiano Start time Last Medication Dose Route Stop Time Status Admin Acetaminophen 650 MG Q6P PRN 06/21 2245 AC PO Acetaminophen 1,000 MG Q6P PRN 06/21 2245 AC IV Aspirin 300 MG DAILY 06/22 1000 AC [place] Aspirin 0 .STK-MED ONE 06/21 2151 DC PO Aspirin 325 MG ONCE ONE 06/21 2145 DC 06/21 PO 06/21 Ceftriaxone Sodium 1,000 MG 06/22 AC IV Ceftriaxone Sodium 0 .STK-MED ONE 06/21 2211 DC .ROUTE Ceftriaxone Sodium 1,000 MG ONCE ONE 06/21 2200 DC 06/21 IV 06/21 Dextrose/Sodium 1,000 ML Q13H 06/22 0630 AC 06/22 Chloride IV 0804 Heparin Sodium 5,000 UNIT Q8 06/22 0023 AC 06/22 (Porcine) SC 0610 Insulin Human Regular 0 Q6 06/22 0012 AC SC Labetalol HCl 0 .STK-MED ONE 06/21 2151 DC IV Labetalol HCl 5 MG ONCE ONE 06/21 2145 DC 06/21 IV 06/21 Lorazepam 0 .STK-MED ONE 06/21 2133 DC .ROUTE Lorazepam 1 MG ONCE ONE 06/21 2130 DC 06/21 IV 06/21 Sodium Chloride 1,000 ML BOLUS ONE 06/21 2000 DC 06/21 IV 06/21 Review of Systems Review of Systems: Limited due to aphasia. Wears eyeglasses Past History Travel History Traveled to [place] past 21 day No Medical History Cardiovascular: hypertension, hyperlipidemia Endocrine: diabetes Surgical History Surgical History: unobtainable (R CEA 2013 Dr Schmidt ) Psychosocial History Where Do You Live? Home Services at Home: None Smoking Status: Unknown If Ever Smoked Exam & Diagnostic Data Vital Signs and I&O Vital Signs Date Time Temp Pulse Resp B/P B/P Pulse O2 O2 Flow FiO2 Mean Ox Delivery Rate 06/22 0708 97.1 75 18 160/98 97 Room Air 06/22 0144 98.4 76 18 160/100 96 Room Air 06/22 0107 97.5 73 14 167/98 97 06/21 2257 75 155/93 06/21 2152 76 178/99 06/21 2134 97.3 76 16 178/99 97 Room Air 06/21 1956 Room Air 06/21 1934 97.2 77 20 187/111 97 Room Air Intake & Output 06/22 1600 06/22 0800 06/22 0000 Intake Total Output Total Balance Patient 190 lb 190 lb Weight Weight Estimated Estimated Measurement Method Physical Exam: Awake, alert, cooperative. 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 Large ulcerated appearing calluses extending from between the first and second digit to the sole of the foot bilaterally Elongated toenails Neurologic exam: Awake and alert Moderate nonfluent aphasia with good comprehension Unable to name common objects, but able to point to most of them appropriately Attempts to read the words on the NIH stroke scale score card and makes phonemic paraphasic errors for most words, but was actually able to appropriately read the word "huckleberry " Difficulty describing the cookie theft picture, but smiles when viewing the picture Able to follow most 1 step commands Cranial nerves: Full extraocular movements Mild right lower facial weakness Tongue midline, but patient unable to protrude the tongue on command Hearing grossly intact Shoulder shrug intact Motor: Normal muscle bulk tone strength and coordination No abnormal involuntary movements Light touch sensation intact Gait not tested Last 48 Hours of Lab Results: Laboratory Tests 06/22 06/22 0605 0605 Chemistry Sodium (137 - 145 mmol/L) 139 Potassium (3.5 - 5.1 mmol/L) 4.3 Chloride (98 - 107 mmol/L) 103 Carbon Dioxide (22 - 30 mmol/L) 24 Anion Gap (5 - 16) 12 BUN (9 - 20 mg/dL) 13 Creatinine (0.7 - 1.2 mg/dL) 0.9 Estimated GFR (>60 ml/min) > 60 BUN/Creatinine Ratio (7 - 25 %) 14.4 Troponin I (<0.11 ng/ml) Cancelled 0.03 Triglycerides (<150 mg/dL) 110 Cholesterol (< 200 MG/DL) 218 H LDL Cholesterol, Calc (65 - 129 mg/dL) 160 H HDL Cholesterol (40 - 60 mg/dL) 36 L Cholesterol/HDL Ratio (0.00 - 4.88 %) 6 H Hematology CBC w Diff NO MAN DIFF REQ WBC (4.8 - 10.8 /CUMM) 7.3 RBC (4.70 - 6.10 /CUMM) 4.98 Hgb (14.0 - 18.0 G/DL) 15.7 Hct (42 - 52 %) 46.7 MCV (80.0 - 94.0 FL) 93.9 MCH (27.0 - 31.0 PG) 31.6 H RDW (11.5 - 14.5 %) 13.0 Plt Count (130 - 400 /CUMM) 186 MPV (7.4 - 10.4 FL) 9.0 Gran % (42.2 - 75.2 %) 60.8 Lymphocytes % (20.5 - 51.1 %) 30.1 Monocytes % (1.7 - 9.3 %) 6.5 Eosinophils % (0 - 5 %) 2.0 Basophils % (0.0 - 2.0 %) 0.6 Absolute Granulocytes (1.4 - 6.5 /CUMM) 4.5 Absolute Lymphocytes (1.2 - 3.4 /CUMM) 2.2 Absolute Monocytes (0.10 - 0.60 /CUMM) 0.5 Absolute Eosinophils (0.0 - 0.7 /CUMM) 0.1 Absolute Basophils (0.0 - 0.2 /CUMM) 0 PUBS MCHC (33.0 - 37.0 G/DL) 33.7 06/21 Chemistry Lactic Acid (0.7 - 2.1 mmol/L) 1.9 Toxicology Urine Opiates Screen (>2000 NG/ML) < 100.00 Methadone Screen (>300 NG/ML) < 40 Barbiturate Screen (>200 NG/ML) < 60 Ur Phencyclidine Scrn (>25 NG/ML) < 6.00 Amphetamines Screen (>1000 NG/ML) < 100 U Benzodiazepines Scrn (>200 NG/ML) < 85 Urine Cocaine Screen (>300 NG/ML) < 50 Urine Cannabis Screen (>50 NG/ML) < 5.00 Urines Urine Color (YEL,AMB,STR) YEL Urine Clarity (CLEAR) HAZY H Urine pH (5.0 - 8.0) 6.0 Ur Specific [place] (1.001 - 1.035) >= 1.030 Urine Protein (NEG,<30 MG/DL) 30 H Urine Ketones (NEG) 15 H Urine Nitrite (NEG) POS H Urine Bilirubin (NEG) NEG Urine Urobilinogen (0.1 - 1.0 EU/dl) 0.2 Ur Leukocyte Esterase (NEG) MOD H Ur Microscopic SEDIMENT EXAMINED Urine RBC (0 - 5 /HPF) 50-75 H Urine WBC (0 - 2 /HPF) 50-75 H Ur Epithelial Cells (NONE,FEW) RARE Urine Bacteria (NEG/NONE) MOD H Urine Mucus (FEW,NONE) RARE Urine Hemoglobin (NEG) LARGE H Urine Glucose (N MG/DL) NEG 06/21 2009 Chemistry Sodium (137 - 145 mmol/L) 139 Potassium (3.5 - 5.1 mmol/L) 3.9 Chloride (98 - 107 mmol/L) 102 Carbon Dioxide (22 - 30 mmol/L) 23 Anion Gap (5 - 16) 14 BUN (9 - 20 mg/dL) 16 Creatinine (0.7 - 1.2 mg/dL) 1.0 Estimated GFR (>60 ml/min) > 60 BUN/Creatinine Ratio (7 - 25 %) 16.0 Glucose (65 - 99 mg/dL) 124 H Lactic Acid (0.7 - 2.1 mmol/L) 1.9 Calcium (8.4 - 10.2 mg/dL) 9.6 Total Bilirubin (0.2 - 1.3 mg/dL) 0.6 AST (17 - 59 U/L) 15 L ALT (21 - 72 U/L) 21 Alkaline Phosphatase (< 127 U/L) 82 Ammonia (9 - 30 umol/L) < 9 L Troponin I (<0.11 ng/ml) < 0.01 Total Protein (6.3 - 8.2 g/dL) 7.8 Albumin (3.5 - 5.0 g/dL) 4.4 Globulin (1.9 - 4.2 gm/dL) 3.4 Albumin/Globulin Ratio (1.1 - 2.2 %) 1.3 Amylase (30 - 110 U/L) 84 Lipase (23 - 300 U/L) 114 Coagulation PT (9.4 - 12.5 SEC) 11.1 INR (0.90 - 1.17) 1.06 APTT (25 - 37 SEC) 31 Hematology CBC w Diff NO MAN DIFF REQ WBC (4.8 - 10.8 /CUMM) 7.9 RBC (4.70 - 6.10 /CUMM) 5.34 Hgb (14.0 - 18.0 G/DL) 16.5 Hct (42 - 52 %) 50.1 MCV (80.0 - 94.0 FL) 93.9 MCH (27.0 - 31.0 PG) 31.0 RDW (11.5 - 14.5 %) 13.0 Plt Count (130 - 400 /CUMM) 203 MPV (7.4 - 10.4 FL) 8.7 Gran % (42.2 - 75.2 %) 63.3 Lymphocytes % (20.5 - 51.1 %) 29.1 Monocytes % (1.7 - 9.3 %) 5.3 Eosinophils % (0 - 5 %) 1.8 Basophils % (0.0 - 2.0 %) 0.5 Absolute Granulocytes (1.4 - 6.5 /CUMM) 5.0 Absolute Lymphocytes (1.2 - 3.4 /CUMM) 2.3 Absolute Monocytes (0.10 - 0.60 /CUMM) 0.4 Absolute Eosinophils (0.0 - 0.7 /CUMM) 0.1 Absolute Basophils (0.0 - 0.2 /CUMM) 0 PUBS MCHC (33.0 - 37.0 G/DL) 33.0 Toxicology Serum Alcohol (<10 MG/DL) < 10.0 Imaging/Other Studies: PATIENT: CHIVO EVANS PRESENT AGE: 62 PATIENT ACCOUNT NO: [id number] : 53 LOCATION: [facility] ORDERING PHYSICIAN: Yohan NIEVES SERVICE DATE: 06/21/17 EXAM TYPE: CAT - CT HEAD WO IV CONTRAST EXAMINATION: CT HEAD WITHOUT CONTRAST CLINICAL INFORMATION: Altered mental status COMPARISON: CT neck 03/08/2013 TECHNIQUE: Contiguous axial imaging was performed from the skull base to vertex without intravenous administration of contrast. DLP: 617.67 mGy-cm FINDINGS: Triangular hypodensity involving the left basal ganglia. Extends from the head of the caudate through the lentiform nucleus. There are additional multifocal hypodensity in the centrum semiovale adjacent to the left lateral ventricle superior to the basal ganglia. These are indeterminate for age. These hypodensities were not present on the CT angiogram of the neck of 03/08/2013. Could be subacute to chronic. No hemorrhage. No mass effect. Velasco-white differentiation maintained. Age-appropriate mild atrophy with prominence of ventricles and sulci. There is vascular wall calcification of the internal carotid arteries bilaterally. The osseous structures and soft tissues are normal. The mastoid air cells and visualized portions of the paranasal sinuses are well aerated. IMPRESSION: Hypodensity involving left basal ganglia on the left periventricular white matter. Subacute to chronic. No acute hemorrhage. No mass effect. Could be further evaluated with dynamic MRI imaging. DICTATED BY: Beck Cagle MD DATE/TIME DICTATED:06/21/172044 SALES EXPERT:MAGALIS DATE/TIME TRANSCRIBED:06/21/172044 PATIENT: CHIVO EVANS PRESENT AGE: 62 PATIENT ACCOUNT NO: [id number] : 53 LOCATION: [facility] ORDERING PHYSICIAN: Yvrose Blanton MD SERVICE DATE: 06/22/17 EXAM TYPE: CAT - CT HEAD ANGIOGRAM; CT NECK ANGIOGRAM EXAMINATION: CT ANGIOGRAM NECK WITH CONTRAST CT ANGIOGRAM BRAIN WITH CONTRAST CLINICAL INFORMATION: Right facial droop and aphasia. COMPARISON: Head CT June 21, 2017. CTA neck March 08, 2013. TECHNIQUE: Test bolus sequences followed by intravenous administration 120 mL of Optiray 350. Helical imaging was performed in the axial plane from the thoracic inlet to the skull vertex. Delayed postcontrast imaging of the head was also performed. The data was processed at the pharmacy technologist workstation for generation of MIP sequences. Angled MIPs and volume rendered reformatted images were also generated at an offline 3D workstation. Stenoses are assessed in accordance with NASCET criteria unless otherwise indicated. FINDINGS: BRAIN: As discussed on the previous head CT there is hypodensity within the left basal ganglia and anterior limb of the left internal capsule as well as the left periventricular white matter that could reflect an acute to subacute infarct in light of the patient's symptoms. There are lacunar infarcts within the thalami bilaterally that are likely chronic. Scattered hypoattenuation throughout the remaining supratentorial white matter may reflect chronic microangiopathy though is nonspecific. There is no pathologic enhancement intracranially. There is no hydrocephalus or extra-axial surface collection. Maxillary and mandibular periapical disease. Paranasal sinuses and mastoid air cells remain well-aerated. CERVICAL SOFT TISSUES AND LUNG APICES: There are no significant soft tissue findings within the neck. There is cervical spondylosis. There is a right vallecular cyst. ARCH ANATOMY: There is a classic 3 vessel configuration of the aortic arch. Proximal arch vessels are non-stenotic. The vertebral arteries are codominant. No significant ostial stenosis is visualized on either side. NECK CTA: Mild atherosclerotic disease along the course of the vertebral arteries bilaterally resulting in mild segmental luminal narrowing. There are surgical clips adjacent to the right carotid bifurcation following endarterectomy. Intimal hyperplasia and/or lipid rich atherosclerotic plaque results in a 60-70% stenosis of the distal right common carotid artery. The right carotid bifurcation is widely patent as is the right cervical internal carotid artery throughout its course. Atherosclerotic disease results in an 80-90% stenosis of the proximal left internal carotid artery that is slightly progressed. Remainder of the left cervical ICA is widely patent. BRAIN CTA: -type CHIEF INFORMATION SECURITY OFFICER on the right side. The proximal half of the left M1 middle cerebral artery segment is occluded. There is reconstitution of the distal half of the left M1 MCA which is small in caliber giving rise to small caliber left MCA sylvian branches which remain patent. Findings are new in comparison to the prior study. The right middle cerebral artery complex and the anterior cerebral artery complexes are widely patent. medical record assistant are widely patent. Vertebrobasilar system remains widely patent. Timing of the contrast bolus allows assessment of the major dural venous sinuses, which all opacify normally. IMPRESSION: - Redemonstrated possible acute to subacute infarct within the left basal ganglia, anterior limb of the left internal capsule, and left periventricular white matter. Additional probable chronic microangiopathy and probable chronic lacunar infarcts within the right left thalamus. These findings can be definitively aged with MRI. - The proximal half of the left M1 middle cerebral artery segment is occluded. There is reconstitution of the distal half of the left M1 MCA which is markedly small in caliber giving rise to small caliber left MCA sylvian branches which remain patent. Findings are new in comparison to the prior study. - Atherosclerotic disease results in an 80-90% stenosis of the proximal left internal carotid artery that is slightly progressed. - There are surgical clips adjacent to the right carotid bifurcation following endarterectomy. Intimal hyperplasia and/or lipid rich atherosclerotic plaque results in a 60-70% stenosis of the distal right common carotid artery that has progressed. DICTATED BY: Domenico Hayes MD DATE/TIME DICTATED:06/22/17149 SALES EXPERT:MAGALIS DATE/TIME TRANSCRIBED:06/22/17149 Ecvho 2012: Indications DM, HTN, Assess LVF Rhythm: Sinus Technical Quality: Good FINDINGS Left Ventricle Moderate concentric left ventricular hypertrophy. Normal size left ventricle. Normal left ventricular ejection fraction visually estimated at >60 %. "pseudonormal" filling pattern of the left ventricle for age (stage 2 diastolic dysfunction). Right Ventricle The right ventricle is normal in size and function. Right Atrium The right atrium is normal in size. Left Atrium The left atrium is normal in size. The interatrial septum is intact. Mitral Valve The mitral valve is normal in structure and function. There is trace mitral regurgitation. Aortic Valve Diffuse mild thickening (sclerosis) of the aortic valve cusps with mildly reduced excursion. Mild aortic stenosis. No aortic regurgitation. Tricuspid Valve The tricuspid valve is normal in structure and function. There is trace tricuspid regurgitation. Pulmonary artery systolic pressure is normal. Pulmonic Valve Structurally normal pulmonic valve. There is trace pulmonic regurgitation. Pericardium Normal pericardium without effusion. No pleural effusion. Great Vessels Normal aortic root dimension. The aortic arch and great vessels are well seen and are normal. CONCLUSIONS Moderate concentric left ventricular hypertrophy. Normal left ventricular ejection fraction visually estimated at >60 "pseudonormal" filling pattern of the left ventricle for age (stage 2 diastolic dysfunction). The left atrium is normal in size. The mitral valve is normal in structure and function. Diffuse mild thickening (sclerosis) of the aortic valve cusps with mildly reduced excursion. Mild aortic stenosis. No aortic regurgitation. Abbe Salmeron M.D. (Electronically Signed) Final 06 Nov 2011 16:51 Assessment/Plan Assessment: Clinical exam significant for acute to subacute left MCA infarct, with nonfluent aphasia and mild right lower facial weakness, with old infarcts seen on head CT, critical left internal carotid artery stenosis, and left M1 intracranial stenosis, redevelopment of right ICA stenosis No TPA due to timing History of right carotid endarterectomy, hypertension, hyperlipidemia, diabetes mellitus, former smoker, non-adherent to medications for at least the past 2 years reportedly Reportedly history of ethanol abuse, and on presentation was said to show signs of physical self-neglect Recommendations: Brain MRI without contrast Echocardiogram Telemetry Aspirin, statin, subcutaneous heparin or Lovenox Speech therapy for speech language and swallow assessments PT and OT Consult Dr. Schmidt for eventual left carotid endarterectomy May need STR Soc service consult re family dynamics Stroke education Alcohol cessation Consult Acknowledgment - Thank you for your consult request.
--- NOTE | 2017-06-22 11:32 | Cons- Cardiology ---
General Information and HPI Consulting Request Date of Consult: 06/22/17 Requested By: Harvinder HUNTER,Yvrose Reason for Consult: Stroke in a patient with hypertension and possible underlying coronary disease. Source of Information: patient, old records Exam Limitations: unable to give history History of Present Illness: The patient is a 62-year-old male with a past history of hypertension, dyslipidemia, diabetes, status post carotid endarterectomy in 2012. There is question of coronary artery disease in the history but apparently the patient has not followed up with any mill tender second operator since his last hospitalization. The patient is unable to give me any history as to myocardial infarction, cardiac catheterization etc. According to the history in the chart the patient has been noncompliant with medications and medical follow-up for at least 2 years. The patient now presents with aphasia and evaluation has shown acute to subacute infarct within the left basal ganglia, anterior limb of the left internal capsule, and left periventricular white matter. There is also 80-90% stenosis of the left internal carotid artery and 60-70% stenosis of the distal right common carotid artery. The patient apparently did not describe any chest pain, shortness of breath, palpitations. The patient has 2 negative troponins. His cholesterol was 218 with with an LDL of 160. He was hypertensive on admission and given one dose of labetalol. His EKG shows some chronic changes but nothing acute. Allergies/Medications Allergies: Coded Allergies: NO KNOWN ALLERGIES (05/12/13) NKDA PER POST OP ORDER SHEET OF 05/12/13 - [facility] Home Med List: No Known Home Medications Current Medications: Current Medications Sig/Cristiano Start time Last Medication Dose Route Stop Time Status Admin Acetaminophen 650 MG Q6P PRN 06/21 2245 AC PO Acetaminophen 1,000 MG Q6P PRN 06/21 2245 AC IV Aspirin 300 MG DAILY 06/22 1000 AC OH Aspirin 0 .STK-MED ONE 06/21 2151 DC PO Aspirin 325 MG ONCE ONE 06/21 2145 DC 06/21 PO 06/21 Ceftriaxone Sodium 1,000 MG 0 06/22 2200 AC IV Ceftriaxone Sodium 0 .STK-MED ONE 06/21 2211 DC .ROUTE Ceftriaxone Sodium 1,000 MG ONCE ONE 06/21 2200 DC 06/21 IV 06/21 Dextrose/Sodium 1,000 ML Q13H 06/22 0630 AC 06/22 Chloride IV 0804 Heparin Sodium 5,000 UNIT Q8 06/22 0023 AC 06/22 (Porcine) SC 0610 Insulin Human Regular 0 Q6 06/22 0012 AC SC Labetalol HCl 0 .STK-MED ONE 06/21 2151 DC IV Labetalol HCl 5 MG ONCE ONE 06/21 2145 DC 06/21 IV 06/21 Lorazepam 0 .STK-MED ONE 06/21 2133 DC .ROUTE Lorazepam 1 MG ONCE ONE 06/21 2130 DC 06/21 IV 06/21 Sodium Chloride 1,000 ML BOLUS ONE 06/21 2000 DC 06/21 IV 06/21 Review of Systems Review of Systems: Unable to obtain Past History Travel History Traveled to [place] past 21 day No Medical History Cardiovascular: hypertension, hyperlipidemia Endocrine: diabetes Surgical History Surgical History: unobtainable (R CEA 2014 Dr Schmidt ) Psychosocial History Where Do You Live? Home Services at Home: None Smoking Status: Unknown If Ever Smoked Exam & Diagnostic Data Vital Signs and I&O Vital Signs Date Time Temp Pulse Resp B/P B/P Pulse O2 O2 Flow FiO2 Mean Ox Delivery Rate 06/22 0708 97.1 75 18 160/98 97 Room Air 06/22 0144 98.4 76 18 160/100 96 Room Air 06/22 0107 97.5 73 14 167/98 97 06/217 75 155/93 06/21 2152 76 178/99 06/21 2134 97.3 76 16 178/99 97 Room Air 06/21 1956 Room Air 06/21 1934 97.2 77 20 187/111 97 Room Air Intake & Output 06/22 1600 06/22 0800 06/22 0000 06/21 1600 06/21 0800 06/21 0000 Intake Total Output Total Balance Patient 190 lb 190 lb Weight Weight Estimated Estimated Measurement Method Physical Exam: Well-developed well-nourished middle-aged man in no acute distress. He is able to answer questions with one or 2 words but not fluently. HEENT exam is normal Neck veins are not distended Carotids no bruits Chest clear to limited exam Heart regular rhythm, soft WALDEMAR at base. Extremities no edema Neurologic there is expressive aphasia and right facial droop. Labs/Lasha Results: Laboratory Tests 06/22 06/22 0605 0605 Chemistry Sodium (137 - 145 mmol/L) 139 Potassium (3.5 - 5.1 mmol/L) 4.3 Chloride (98 - 107 mmol/L) 103 Carbon Dioxide (22 - 30 mmol/L) 24 Anion Gap (5 - 16) 12 BUN (9 - 20 mg/dL) 13 Creatinine (0.7 - 1.2 mg/dL) 0.9 Estimated GFR (>60 ml/min) > 60 BUN/Creatinine Ratio (7 - 25 %) 14.4 Troponin I (<0.11 ng/ml) Cancelled 0.03 Triglycerides (<150 mg/dL) 110 Cholesterol (< 200 MG/DL) 218 H LDL Cholesterol, Calc (65 - 129 mg/dL) 160 H HDL Cholesterol (40 - 60 mg/dL) 36 L Cholesterol/HDL Ratio (0.00 - 4.88 %) 6 H Hematology CBC w Diff NO MAN DIFF REQ WBC (4.8 - 10.8 /CUMM) 7.3 RBC (4.70 - 6.10 /CUMM) 4.98 Hgb (14.0 - 18.0 G/DL) 15.7 Hct (42 - 52 %) 46.7 MCV (80.0 - 94.0 FL) 93.9 MCH (27.0 - 31.0 PG) 31.6 H RDW (11.5 - 14.5 %) 13.0 Plt Count (130 - 400 /CUMM) 186 MPV (7.4 - 10.4 FL) 9.0 Gran % (42.2 - 75.2 %) 60.8 Lymphocytes % (20.5 - 51.1 %) 30.1 Monocytes % (1.7 - 9.3 %) 6.5 Eosinophils % (0 - 5 %) 2.0 Basophils % (0.0 - 2.0 %) 0.6 Absolute Granulocytes (1.4 - 6.5 /CUMM) 4.5 Absolute Lymphocytes (1.2 - 3.4 /CUMM) 2.2 Absolute Monocytes (0.10 - 0.60 /CUMM) 0.5 Absolute Eosinophils (0.0 - 0.7 /CUMM) 0.1 Absolute Basophils (0.0 - 0.2 /CUMM) 0 PUBS MCHC (33.0 - 37.0 G/DL) 33.7 06/21 Chemistry Lactic Acid (0.7 - 2.1 mmol/L) 1.9 Toxicology Urine Opiates Screen (>2000 NG/ML) < 100.00 Methadone Screen (>300 NG/ML) < 40 Barbiturate Screen (>200 NG/ML) < 60 Ur Phencyclidine Scrn (>25 NG/ML) < 6.00 Amphetamines Screen (>1000 NG/ML) < 100 U Benzodiazepines Scrn (>200 NG/ML) < 85 Urine Cocaine Screen (>300 NG/ML) < 50 Urine Cannabis Screen (>50 NG/ML) < 5.00 Urines Urine Color (YEL,AMB,STR) YEL Urine Clarity (CLEAR) HAZY H Urine pH (5.0 - 8.0) 6.0 Ur Specific [place] (1.001 - 1.035) >= 1.030 Urine Protein (NEG,<30 MG/DL) 30 H Urine Ketones (NEG) 15 H Urine Nitrite (NEG) POS H Urine Bilirubin (NEG) NEG Urine Urobilinogen (0.1 - 1.0 EU/dl) 0.2 Ur Leukocyte Esterase (NEG) MOD H Ur Microscopic SEDIMENT EXAMINED Urine RBC (0 - 5 /HPF) 50-75 H Urine WBC (0 - 2 /HPF) 50-75 H Ur Epithelial Cells (NONE,FEW) RARE Urine Bacteria (NEG/NONE) MOD H Urine Mucus (FEW,NONE) RARE Urine Hemoglobin (NEG) LARGE H Urine Glucose (N MG/DL) NEG 06/21 2009 Chemistry Sodium (137 - 145 mmol/L) 139 Potassium (3.5 - 5.1 mmol/L) 3.9 Chloride (98 - 107 mmol/L) 102 Carbon Dioxide (22 - 30 mmol/L) 23 Anion Gap (5 - 16) 14 BUN (9 - 20 mg/dL) 16 Creatinine (0.7 - 1.2 mg/dL) 1.0 Estimated GFR (>60 ml/min) > 60 BUN/Creatinine Ratio (7 - 25 %) 16.0 Glucose (65 - 99 mg/dL) 124 H Lactic Acid (0.7 - 2.1 mmol/L) 1.9 Calcium (8.4 - 10.2 mg/dL) 9.6 Total Bilirubin (0.2 - 1.3 mg/dL) 0.6 AST (17 - 59 U/L) 15 L ALT (21 - 72 U/L) 21 Alkaline Phosphatase (< 127 U/L) 82 Ammonia (9 - 30 umol/L) < 9 L Troponin I (<0.11 ng/ml) < 0.01 Total Protein (6.3 - 8.2 g/dL) 7.8 Albumin (3.5 - 5.0 g/dL) 4.4 Globulin (1.9 - 4.2 gm/dL) 3.4 Albumin/Globulin Ratio (1.1 - 2.2 %) 1.3 Amylase (30 - 110 U/L) 84 Lipase (23 - 300 U/L) 114 Coagulation PT (9.4 - 12.5 SEC) 11.1 INR (0.90 - 1.17) 1.06 APTT (25 - 37 SEC) 31 Hematology CBC w Diff NO MAN DIFF REQ WBC (4.8 - 10.8 /CUMM) 7.9 RBC (4.70 - 6.10 /CUMM) 5.34 Hgb (14.0 - 18.0 G/DL) 16.5 Hct (42 - 52 %) 50.1 MCV (80.0 - 94.0 FL) 93.9 MCH (27.0 - 31.0 PG) 31.0 RDW (11.5 - 14.5 %) 13.0 Plt Count (130 - 400 /CUMM) 203 MPV (7.4 - 10.4 FL) 8.7 Gran % (42.2 - 75.2 %) 63.3 Lymphocytes % (20.5 - 51.1 %) 29.1 Monocytes % (1.7 - 9.3 %) 5.3 Eosinophils % (0 - 5 %) 1.8 Basophils % (0.0 - 2.0 %) 0.5 Absolute Granulocytes (1.4 - 6.5 /CUMM) 5.0 Absolute Lymphocytes (1.2 - 3.4 /CUMM) 2.3 Absolute Monocytes (0.10 - 0.60 /CUMM) 0.4 Absolute Eosinophils (0.0 - 0.7 /CUMM) 0.1 Absolute Basophils (0.0 - 0.2 /CUMM) 0 PUBS MCHC (33.0 - 37.0 G/DL) 33.0 Toxicology Serum Alcohol (<10 MG/DL) < 10.0 Diagnostic Data EKG Results Initial EKG shows sinus rhythm and rate of 79 there are small inferior Q waves and lateral T-wave inversions. Repeat EKG is technically inadequate with right left arm lead reversal but probably does not show any significant change. CXR Results RESENT AGE: 62 PATIENT ACCOUNT NO: [id number] : 53 LOCATION: [facility] ORDERING PHYSICIAN: Yohan NIEVES SERVICE DATE: 06/21/17 EXAM TYPE: RAD - XRY-PORTABLE CHEST XRAY EXAMINATION: XR CHEST CLINICAL INFORMATION: Altered mental status COMPARISON: None. TECHNIQUE: PA and lateral views of the chest were obtained. FINDINGS: Lungs are clear. No pulmonary vascular congestion. There is no pleural effusion. The heart size is normal. The cardiac and mediastinal contours are normal. There are calcifications of the thoracic aorta. There are multilevel degenerative changes of dorsal spine. IMPRESSION: Normal chest. DICTATED BY: Beck Cagle MD DATE/TIME DICTATED:06/21/172052 PROGRAM PRODUCTION SPECIALIST:MAGALIS DATE/TIME TRANSCRIBED:06/21/172052 CONFIDENTIAL, DO NOT COPY WITHOUT APPROPRIATE AUTHORIZATION. <Electronically signed in Other Vendor System> SIGNED BY: Beck Cagle MD 06/21/17 2100 Other Results IMPRESSION: - Redemonstrated possible acute to subacute infarct within the left basal ganglia, anterior limb of the left internal capsule, and left periventricular white matter. Additional probable chronic microangiopathy and probable chronic lacunar infarcts within the right left thalamus. These findings can be definitively aged with MRI. - The proximal half of the left M1 middle cerebral artery segment is occluded. There is reconstitution of the distal half of the left M1 MCA which is markedly small in caliber giving rise to small caliber left MCA sylvian branches which remain patent. Findings are new in comparison to the prior study. - Atherosclerotic disease results in an 80-90% stenosis of the proximal left internal carotid artery that is slightly progressed. - There are surgical clips adjacent to the right carotid bifurcation following endarterectomy. Intimal hyperplasia and/or lipid rich atherosclerotic plaque results in a 60-70% stenosis of the distal right common carotid artery that has progressed. DICTATED BY: Domenico Hayes MD DATE/TIME DICTATED:06/22/17149 PROGRAM PRODUCTION SPECIALIST:OKEEFE DATE/TIME TRANSCRIBED:06/22/17149 CONFIDENTIAL, DO NOT COPY WITHOUT APPROPRIATE AUTHORIZATION. <Electronically signed in Other Vendor System> SIGNED BY: Domenico Hayes MD 06/22/17 0209 CONCLUSIONS Left ventricular wall thickness at upper limits of normal. Normal left ventricular ejection fraction visually estimated at >65 Normal left ventricular diastolic filling pattern for age. The left atrium is normal in size. The mitral valve is normal in structure and function. There is trace mitral regurgitation. Diffuse thickening of the aortic valve cusps with reduced excursion. Very mild aortic stenosis. Trace to mild aortic regurgitation. Unable to estimate the right ventricular systolic pressure. Abbe Salmeron M.D. (Electronically Signed) Final Date: 22 June 2017 14:09 Assessment/Plan Assessment/Plan This patient has suffered a stroke resulting in aphasia and right facial droop. He has bilateral carotid artery disease. He has a history of hypertension and dyslipidemia and is noncompliant with medications and medical follow-up. He is not having any cardiac symptoms and he has 2 negative troponins and no obvious arrhythmias. His EKG is abnormal but doesn't show any acute changes. He is hypertensive. His echocardiogram shows good left ventricular function, increased echoes of aortic valve with very mild aortic stenosis and aortic regurgitation. I recommend starting him on antihypertensive medications, starting with an CASPER inhibitor or an ARB. I recommend starting him on high-dose statin therapy and aspirin with or without dipyridamole as recommended by neurology. If the enzymes remain negative and there are no arrhythmias he can probably be discontinued from telemetry monitoring by tomorrow. Consult Acknowledgment - Thank you for your consult request.
--- NOTE | 2017-06-22 14:10 | ECHOCARDIOGRAM REPORT ---
CHIVO EVANS Age: 62 : 1955 Gender: M Exam Date: 06/22/2017 10:50 Exam Location: [address] Ht (in): 70 Wt (lb): 190 BSA: 2.08 BP: 160 / 98 Ordering Physician: Cinthia Martinez MD Referring Physician: Cinthia Martinez MD Technologist: Fahad Del Toro [facility] Room Number: [id number] Indications: STROKE Rhythm: Sinus Technical Quality: Good FINDINGS Left Ventricle Normal size left ventricle. Left ventricular wall thickness at upper limits of normal. Normal left ventricular ejection fraction visually estimated at >65 %. No obvious regional wall motion abnormalities. Normal left ventricular diastolic filling pattern for age. Right Ventricle The right ventricle is normal in size and function. Right Atrium The right atrium is normal in size. Left Atrium The left atrium is normal in size. The interatrial septum is intact. Mitral Valve The mitral valve is normal in structure and function. There is trace mitral regurgitation. Aortic Valve Diffuse thickening of the aortic valve cusps with reduced excursion. Very mild aortic stenosis. Trace to mild aortic regurgitation. Tricuspid Valve The tricuspid valve is normal in structure and function. There is trace tricuspid regurgitation. Unable to estimate the right ventricular systolic pressure. Pulmonic Valve Structurally normal pulmonic valve. There is no pulmonic regurgitation. Pericardium Normal pericardium without effusion. No pleural effusion. Great Vessels Normal aortic root dimension. The aortic arch and great vessels are well seen and are normal. CONCLUSIONS Left ventricular wall thickness at upper limits of normal. Normal left ventricular ejection fraction visually estimated at >65 Normal left ventricular diastolic filling pattern for age. The left atrium is normal in size. The mitral valve is normal in structure and function. There is trace mitral regurgitation. Diffuse thickening of the aortic valve cusps with reduced excursion. Very mild aortic stenosis. Trace to mild aortic regurgitation. Unable to estimate the right ventricular systolic pressure. Abbe Salmeron M.D. (Electronically Signed) Final Date: 22 June 2017 14:09 MEASUREMENTS (Male / Female) Normal Values 2D ECHO LV Diastolic Diameter PLAX 4.1 cm 4.2 - 5.9 / 3.9 - 5.3 cm LV Systolic Diameter PLAX 2.6 cm 2.1 - 4.0 cm LV Fractional Shortening PLAX 36.6 % 25 - 46 % LV Ejection Fraction 2D Teich 66.8 % IVS Diastolic Thickness 1.2 cm LVPW Diastolic Thickness 1.0 cm LV Relative Wall Thickness 0.5 RV Internal Dim ED PLAX 3.2 cm 1.9 - 3.8 cm LVOT Diameter 2.0 cm Aortic Root Diameter 2.8 cm LA Systolic Diameter LX 2.5 cm 3.0 - 4.0 / 2.7 - 3.8 cm Ascending Aorta Diameter 3.2 cm DOPPLER AV Peak Velocity 201.0 cm/s AV Peak Gradient 16.2 mmHg AV Mean Velocity 128.0 cm/s AV Mean Gradient 8.0 mmHg AV Velocity Time Integral 47.4 cm AI Deceleration [place] 218.0 cm/s AI Peak Velocity 376.0 cm/s AI Pressure Half Time 505.0 ms AI Peak Gradient 56.6 mmHg LVOT Peak Velocity 81.2 cm/s LVOT Peak Gradient 2.6 mmHg LVOT Mean Velocity 48.3 cm/s LVOT Mean Gradient 1.0 mmHg LVOT Velocity Time Integral 20.7 cm LVOT Stroke Volume 65.0 cm AV Area Cont Eq vti 1.4 cm AV Area Cont Eq pk 1.3 cm MV Peak Velocity 82.7 cm/s MV Peak Gradient 2.7 mmHg MV Mean Velocity 56.3 cm/s MV Mean Gradient 1.0 mmHg Mitral E Point Velocity 80.9 cm/s Mitral A Point Velocity 58.7 cm/s Mitral E to A Ratio 1.4 MV PHT Velocity 86.9 cm/s MV Deceleration [place] 588.0 cm/s MV Pressure Half Time 44.3 ms MV Area PHT 5.0 cm MV Deceleration Time 278.0 ms PV Peak Velocity 84.1 cm/s PV Peak Gradient 2.8 mmHg PV Mean Velocity 55.1 cm/s PV Mean Gradient 1.0 mmHg PV Velocity Time Integral 17.6 cm LV E' Lateral Velocity 9.5 cm/s Mitral E to LV E' Lateral Ratio 8.6 LV E' Septal Velocity 7.7 cm/s Mitral E to LV E' Septal Ratio 10.5
[2017-06-22 14:42] VITALS: BP 160/90
--- NOTE | 2017-06-22 15:32 | RADIOLOGY REPORT ---
EXAMINATION: XR MODIFIED BARIUM SWALLOW CLINICAL INFORMATION: Stroke. Intermittent coughing. Expressive aphasia. COMPARISON: None. TECHNIQUE: Fluoroscopic assistance was provided during a modified barium swallow performed in cooperation with the speech pathology service. FLUOROSCOPY TIME: 2 minutes, 15 seconds NUMBER OF SAVED IMAGES: 19 screening capture images were saved. FINDINGS: The modified barium swallow examination was performed in cooperation with the speech pathologist using dynamic fluoroscopic imaging in a lateral projection. The patient's swallowing function was observed during administration of apple sauce puree, honey, nectar, thin barium contrast, and barium coated bread and cracker. With thin barium contrast, there was mild residual observed in the vallecula and piriform sinuses; this partially cleared on subsequent swallows. No significant retention of other substances. No episodes of tracheal aspiration or penetration. Incidental findings include surgical clips within the neck and multilevel degenerative disc space narrowing and osteophyte formation of the cervical spine. IMPRESSION: No evidence of tracheal aspiration or penetration.
--- NOTE | 2017-06-22 15:38 | MRI REPORT ---
EXAMINATION: MR BRAIN WITHOUT CONTRAST CLINICAL INFORMATION: Left MCA stroke. Aphasia, weakness, and facial droop. COMPARISON: CTA of the head and neck 06/22/2017. TECHNIQUE: Multiplanar, multisequence imaging of the brain was performed without intravenous contrast. \H\ \N\FINDINGS: There is redemonstration of an acute infarct within the left donahue radiata, caudate head, lentiform nucleus, and left periatrial white matter. A few noncontiguous foci of acute infarction are also present within the left inferior frontal and temporal lobes. There is mild associated cytotoxic edema but no significant regional mass effect or midline shift. There is redemonstration of old right basal ganglia and bilateral thalamic lacunar infarcts and old bilateral cerebellar border zone infarcts. There is no intracranial hemorrhage, mass, or extra-axial collection. There are mild foci of T2 hyperintensity in the bilateral cerebral white matter, which are nonspecific but likely reflect underlying small vessel disease. There is mild diffuse brain parenchymal volume loss with prominence of ventricles and sulci. There is no evidence of hydrocephalus. The flow voids of the major intracranial arteries appear intact. There is mild paranasal sinus mucosal thickening without fluid levels. IMPRESSION: 1. Redemonstration of acute infarct in the left middle cerebral artery territory involving the left donahue radiata, caudate head, lentiform nucleus, and left periatrial white matter. A few noncontiguous foci of acute infarction within the left MCA territory are also present. No evidence of hemorrhagic transformation, mass effect, or midline shift. 2. Redemonstration of old infarcts within the right basal ganglia, bilateral thalami, and bilateral cerebellar hemispheres. 3. Mild small vessel ischemic changes.
--- NOTE | 2017-06-22 16:21 | Cons- Endocrinology ---
General Information and HPI Consulting Request Date of Consult: 06/22/17 Requested By: medical team Reason for Consult: management of diabetes type 2 Source of Information: patient, family Exam Limitations: no limitations History of Present Illness: Patient is a 62-year-old male with PMH significant for CAD, HTN, dyslipidemia, DM type 2 on diet control, right carotid endarterectomy performed (2012 for nonsymptomatic severe carotid stenosis) was BIBA to hospital for evaluation of altered mental status. He was admitted for acute infarct in the left middle cerebral artery territory. He was kept NPO and was on D5 1/2 NS at 75 ml/hour. His FSGs were 120, 110 and 104. He is covered by RISS every 6 hours. Allergies/Medications Allergies: Coded Allergies: NO KNOWN ALLERGIES (05/12/13) NKDA PER POST OP ORDER SHEET OF 05/12/13 - [facility] Home Med List: No Known Home Medications Review of Systems Review of Systems Constitutional: Reports: see HPI. Cardiovascular: Denies: chest pain. Respiratory: Denies: short of breath. GI: Denies: abdominal pain. Genitourinary: Denies: dysuria. Neurological/Psychological: Reports: see HPI. Hematologic/Endocrine: Denies: polyuria, polydipsia. Past History Travel History Traveled to [place] past 21 day No Medical History Cardiovascular: hypertension, hyperlipidemia Endocrine: diabetes Surgical History Surgical History: unobtainable Psychosocial History Where Do You Live? Home Services at Home: None Smoking Status: Unknown If Ever Smoked Exam & Diagnostic Data Last 24 Hrs of Vital Signs/I&O Vital Signs Date Time Temp Pulse Resp B/P B/P Pulse O2 O2 Flow FiO2 Mean Ox Delivery Rate 06/22 1442 69 20 160/90 96 06/22 0708 97.1 75 18 160/98 97 Room Air 06/22 0144 98.4 76 18 160/100 96 Room Air 06/22 0107 97.5 73 14 167/98 97 06/21 2257 75 155/93 06/21 2152 76 178/99 06/214 97.3 76 16 178/99 97 Room Air 06/21 1956 Room Air 06/21 1934 97.2 77 20 187/111 97 Room Air Intake & Output 06/22 1600 06/22 0800 06/22 0000 Intake Total Output Total Balance Patient 190 lb 190 lb Weight Weight Estimated Estimated Measurement Method Physical Exam General Appearance: no apparent distress Neck: normal inspection Respiratory: lungs clear Cardiovascular: regular rate/rhythm Gastrointestinal: soft Extremities: no edema Neurologic/Psych: motor weakness Labs/Lasha Results: Laboratory Tests 06/22 06/22 0605 0605 Chemistry Sodium (137 - 145 mmol/L) 139 Potassium (3.5 - 5.1 mmol/L) 4.3 Chloride (98 - 107 mmol/L) 103 Carbon Dioxide (22 - 30 mmol/L) 24 Anion Gap (5 - 16) 12 BUN (9 - 20 mg/dL) 13 Creatinine (0.7 - 1.2 mg/dL) 0.9 Estimated GFR (>60 ml/min) > 60 BUN/Creatinine Ratio (7 - 25 %) 14.4 Hemoglobin A1c (4.2 - 5.8 %) 7.6 H Troponin I (<0.11 ng/ml) Cancelled 0.03 Triglycerides (<150 mg/dL) 110 Cholesterol (< 200 MG/DL) 218 H LDL Cholesterol, Calc (65 - 129 mg/dL) 160 H HDL Cholesterol (40 - 60 mg/dL) 36 L Cholesterol/HDL Ratio (0.00 - 4.88 %) 6 H Hematology CBC w Diff NO MAN DIFF REQ WBC (4.8 - 10.8 /CUMM) 7.3 RBC (4.70 - 6.10 /CUMM) 4.98 Hgb (14.0 - 18.0 G/DL) 15.7 Hct (42 - 52 %) 46.7 MCV (80.0 - 94.0 FL) 93.9 MCH (27.0 - 31.0 PG) 31.6 H RDW (11.5 - 14.5 %) 13.0 Plt Count (130 - 400 /CUMM) 186 MPV (7.4 - 10.4 FL) 9.0 Gran % (42.2 - 75.2 %) 60.8 Lymphocytes % (20.5 - 51.1 %) 30.1 Monocytes % (1.7 - 9.3 %) 6.5 Eosinophils % (0 - 5 %) 2.0 Basophils % (0.0 - 2.0 %) 0.6 Absolute Granulocytes (1.4 - 6.5 /CUMM) 4.5 Absolute Lymphocytes (1.2 - 3.4 /CUMM) 2.2 Absolute Monocytes (0.10 - 0.60 /CUMM) 0.5 Absolute Eosinophils (0.0 - 0.7 /CUMM) 0.1 Absolute Basophils (0.0 - 0.2 /CUMM) 0 PUBS MCHC (33.0 - 37.0 G/DL) 33.7 06/21 Chemistry Lactic Acid (0.7 - 2.1 mmol/L) 1.9 Toxicology Urine Opiates Screen (>2000 NG/ML) < 100.00 Methadone Screen (>300 NG/ML) < 40 Barbiturate Screen (>200 NG/ML) < 60 Ur Phencyclidine Scrn (>25 NG/ML) < 6.00 Amphetamines Screen (>1000 NG/ML) < 100 U Benzodiazepines Scrn (>200 NG/ML) < 85 Urine Cocaine Screen (>300 NG/ML) < 50 Urine Cannabis Screen (>50 NG/ML) < 5.00 Urines Urine Color (YEL,AMB,STR) YEL Urine Clarity (CLEAR) HAZY H Urine pH (5.0 - 8.0) 6.0 Ur Specific [place] (1.001 - 1.035) >= 1.030 Urine Protein (NEG,<30 MG/DL) 30 H Urine Ketones (NEG) 15 H Urine Nitrite (NEG) POS H Urine Bilirubin (NEG) NEG Urine Urobilinogen (0.1 - 1.0 EU/dl) 0.2 Ur Leukocyte Esterase (NEG) MOD H Ur Microscopic SEDIMENT EXAMINED Urine RBC (0 - 5 /HPF) 50-75 H Urine WBC (0 - 2 /HPF) 50-75 H Ur Epithelial Cells (NONE,FEW) RARE Urine Bacteria (NEG/NONE) MOD H Urine Mucus (FEW,NONE) RARE Urine Hemoglobin (NEG) LARGE H Urine Glucose (N MG/DL) NEG 06/21 2009 Chemistry Sodium (137 - 145 mmol/L) 139 Potassium (3.5 - 5.1 mmol/L) 3.9 Chloride (98 - 107 mmol/L) 102 Carbon Dioxide (22 - 30 mmol/L) 23 Anion Gap (5 - 16) 14 BUN (9 - 20 mg/dL) 16 Creatinine (0.7 - 1.2 mg/dL) 1.0 Estimated GFR (>60 ml/min) > 60 BUN/Creatinine Ratio (7 - 25 %) 16.0 Glucose (65 - 99 mg/dL) 124 H Lactic Acid (0.7 - 2.1 mmol/L) 1.9 Calcium (8.4 - 10.2 mg/dL) 9.6 Total Bilirubin (0.2 - 1.3 mg/dL) 0.6 AST (17 - 59 U/L) 15 L ALT (21 - 72 U/L) 21 Alkaline Phosphatase (< 127 U/L) 82 Ammonia (9 - 30 umol/L) < 9 L Troponin I (<0.11 ng/ml) < 0.01 Total Protein (6.3 - 8.2 g/dL) 7.8 Albumin (3.5 - 5.0 g/dL) 4.4 Globulin (1.9 - 4.2 gm/dL) 3.4 Albumin/Globulin Ratio (1.1 - 2.2 %) 1.3 Amylase (30 - 110 U/L) 84 Lipase (23 - 300 U/L) 114 Coagulation PT (9.4 - 12.5 SEC) 11.1 INR (0.90 - 1.17) 1.06 APTT (25 - 37 SEC) 31 Hematology CBC w Diff NO MAN DIFF REQ WBC (4.8 - 10.8 /CUMM) 7.9 RBC (4.70 - 6.10 /CUMM) 5.34 Hgb (14.0 - 18.0 G/DL) 16.5 Hct (42 - 52 %) 50.1 MCV (80.0 - 94.0 FL) 93.9 MCH (27.0 - 31.0 PG) 31.0 RDW (11.5 - 14.5 %) 13.0 Plt Count (130 - 400 /CUMM) 203 MPV (7.4 - 10.4 FL) 8.7 Gran % (42.2 - 75.2 %) 63.3 Lymphocytes % (20.5 - 51.1 %) 29.1 Monocytes % (1.7 - 9.3 %) 5.3 Eosinophils % (0 - 5 %) 1.8 Basophils % (0.0 - 2.0 %) 0.5 Absolute Granulocytes (1.4 - 6.5 /CUMM) 5.0 Absolute Lymphocytes (1.2 - 3.4 /CUMM) 2.3 Absolute Monocytes (0.10 - 0.60 /CUMM) 0.4 Absolute Eosinophils (0.0 - 0.7 /CUMM) 0.1 Absolute Basophils (0.0 - 0.2 /CUMM) 0 PUBS MCHC (33.0 - 37.0 G/DL) 33.0 Toxicology Serum Alcohol (<10 MG/DL) < 10.0 Assessment/Plan Assessment/Plan Patient is a 62-year-old male with PMH significant for CAD, HTN, dyslipidemia, DM type 2 on diet control, right carotid endarterectomy performed (2012 for nonsymptomatic severe carotid stenosis) was BIBA to hospital for evaluation of altered mental status. He was admitted for acute infarct in the left middle cerebral artery territory. DM management: 1. while he is NPO and on D51/2 NS at 75 ml/hour, he will be on RISS every 6 hours FSG < 150, no coverage; 150-200, 2 units 201-250, 3 units 251-300, 4 units 301-350, 6 units 351-400, 8 units 2. after he passes swallow evaluation and starts eating meals, IVF will be discontinued, RISS every 6 hours will be discontinued. He will be on Novolog coverage before meals and Novolog coverage at bedtime-- detail see the inpatient DM orders. monitor his FSGs. will follow. Inpatient Diabetes Orders Before Each Meal: Bolus Insulin: Novolog < 80 mg/dl: no coverage 80-100 mg/dl: no coverage 101-120 mg/dl: no coverage 121-150 mg/dl: no coverage 151-200 mg/dl: 2 units 201-250 mg/dl: 3 units 251-300 mg/dl: 4 units 301-350 mg/dl: 6 units 351-400 mg/dl: 8 units > 400 mg/dl: 10 units Bedtime: Bolus Insulin: Novolog < 80 mg/dl: no coverage 80-100 mg/dl: no coverage 101-120 mg/dl: no coverage 121-150 mg/dl: no coverage 151-200 mg/dl: no coverage 201-250 mg/dl: 2 units 251-300 mg/dl: 3 units 301-350 mg/dl: 4 units 351-400 mg/dl: 5 units > 400 mg/dl: 6 units Consult Acknowledgment - Thank you for your consult request.
--- NOTE | 2017-06-22 16:28 | Cons- Vascular Surgery ---
General Information and HPI Consulting Request Date of Consult: 06/22/17 Requested By: Harvinder HUNTER,Yvrose History of Present Illness: 62-year-old man with history of diabetes, hypertension, dyslipidemia presented to the hospital with difficulty speaking. He is status post right carotid endarterectomy about 3 years ago. He is noncompliant and presented with poor hygiene. 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 On this admission, he is on CIWA scale. CTA of the head and neck showed severe left proximal ICA stenosis and so acute left MCA infarct. There is also an occlusion of the Rew multiple M1 segment. Allergies/Medications Allergies: Coded Allergies: NO KNOWN ALLERGIES (05/12/13) NKDA PER POST OP ORDER SHEET OF 05/12/13 - [facility] Home Med List: No Known Home Medications Past History Medical History Cardiovascular: hypertension, hyperlipidemia Endocrine: diabetes Surgical History Pertinent Surgical History: unobtainable Psychosocial History Where Do You Live? Home Services at Home: None Smoking Status: Unknown If Ever Smoked Review of Systems Review of Systems: Unable to obtain because of patient's mental status and/or inability to speak Exam & Diagnostic Data Vital Signs and I&O Vital Signs Date Time Temp Pulse Resp B/P B/P Pulse O2 O2 Flow FiO2 Mean Ox Delivery Rate 06/22 1442 69 20 160/90 96 06/22 0708 97.1 75 18 160/98 97 Room Air 06/22 0144 98.4 76 18 160/100 96 Room Air 06/22 0107 97.5 73 14 167/98 97 06/21 2257 75 155/93 06/21 2152 76 178/99 06/21 2134 97.3 76 16 178/99 97 Room Air 06/21 1956 Room Air 06/21 1934 97.2 77 20 187/111 97 Room Air Intake & Output 06/22 1600 06/22 0800 06/22 0000 06/21 1600 06/21 0800 06/21 0000 Intake Total Output Total Balance Patient 190 lb 190 lb Weight Weight Estimated Estimated Measurement Method Physical Exam: Patient is awake and alert. He has difficulty finding words. Lungs: Clear to auscultation bilaterally Cardiovascular: Regular rate and rhythm Abdomen: Soft, nontender nondistended Extremities: Warm and well-perfused Assessment/Plan Assessment/Plan 62-year-old man status post right carotid endarterectomy presented with difficulty speaking. He was found to have subacute left MCA infarct. CTA of the neck showed significant stenosis of the left proximal ICA as well as proximal occlusion of M1 segment. The patient was not a candidate for TPA on admission. Because of the occlusion of the M1 segment, the patient is not a candidate for carotid endarterectomy at this time. I recommend: antiplatelet and statin therapy Speech therapy We will follow him as outpatient. Consult Acknowledgment - Thank you for your consult request. Attending MD Review Statement Attending Statement Attending MD Statement: examined this patient, discuss w/resident/PA/USER SUPPORT SPECIALIST
--- NOTE | 2017-06-22 17:13 | ULTRASOUND REPORT ---
EXAMINATION: US CAROTID DUPLEX, BILATERAL CLINICAL INFORMATION: History of stroke. COMPARISON: CT angiography of the neck earlier today. TECHNIQUE: Duplex bilateral carotid US was performed using real-time ultrasound and Doppler techniques (integrating B-mode 2D vascular images, Doppler spectral analysis and color flow Doppler imaging). These techniques were utilized to interrogate the extracranial carotid and vertebral arteries bilaterally. The degree of stenosis is based off criteria similar to NASCET. FINDINGS: 1. On the right: Plaque is present at the carotid bifurcation extending into the right ICA. However, velocities are normal and do not suggest a stenosis of greater than 50% diameter reduction in the right ICA. The vertebral artery was not visualized. The right external carotid artery shows no significant stenosis. 2. On the left: There is a question of a mobile flap or plaque in the distal left common carotid artery. This area correlates with a lipid rich plaque seen on the CTA of the neck producing a 60-70% stenosis in the distal right common carotid artery. There is a hemodynamically significant stenosis correlating to 50-79% diameter reduction of the proximal internal carotid artery. A moderate amount of hyperechoic plaque is noted within the proximal internal and external carotid arteries. The peak systolic and diastolic velocities as measured within the proximal internal carotid artery equals 198 and 48 cm/s respectively. The vertebral artery is patent demonstrating antegrade flow. The left ECA demonstrates a mild stenosis with peak systolic velocity of under 200 cm/s. IMPRESSION: Hemodynamically significant stenoses consistent with a 50-79% diameter reduction of the proximal left internal carotid artery. On the CTA performed earlier today, the stenosis in the internal carotid was thought to be 80-90%. A hemodynamically significant stenosis of greater than 50% is not present on the right.
[2017-06-22 22:20] VITALS: BP 146/80
[2017-06-23 06:34] VITALS: BP 118/82
[2017-06-23 08:15] LABS: ABSOLUTE BASOPHIL COUNT 0 /CUMM (0.0-0.2); ABSOLUTE EOSINOPHIL COUNT 0.2 /CUMM (0.0-0.7); ABSOLUTE GRANULOCYTE CT 4.3 /CUMM (1.4-6.5); ABSOLUTE LYMPH COUNT 1.7 /CUMM (1.2-3.4); ABSOLUTE MONOCYTE COUNT 0.4 /CUMM (0.10-0.60); BASOPHIL % 0.7 % (0.0-2.0); EOSINOPHIL % 2.5 % (0-5); GRANULOCYTE % 64.5 % (42.2-75.2); HEMATOCRIT 45.6 % (42-52); MEAN CORPUSCULAR HGB 31.4 PG (27.0-31.0); MEAN CORPUSCULAR HGB CONC 33.7 G/DL (33.0-37.0); MEAN CORPUSCULAR VOLUME 93.3 FL (80.0-94.0); MEAN PLATELET VOLUME 9.1 FL (7.4-10.4); PLATELET COUNT 177 /CUMM (130-400); RBC DISTRIBUTION WIDTH 13.2 % (11.5-14.5); RED BLOOD CELL CT 4.89 /CUMM (4.70-6.10); WHITE BLOOD CELL COUNT 6.6 /CUMM (4.8-10.8)
--- NOTE | 2017-06-23 08:26 | PN- Housestaff ---
Adams HUNTER,[facility] 06/23/17 0826: Subjective Follow-up For: Ischemic stroke Subjective: Patient seen and examined. He was working with physical therapy. Offers no complaints. He continues to have difficulty with articulating words. No overnight acute events. No urinary symptoms Review of Systems Constitutional: Reports: see HPI. Objective Last 24 Hrs of Vital Signs/I&O Vital Signs Date Time Temp Pulse Resp B/P B/P Pulse O2 O2 Flow FiO2 Mean Ox Delivery Rate 06/23 1002 69 118/62 06/23 0634 96.4 69 20 118/82 95 Room Air 06/23 0000 80 06/22 2220 97.6 74 20 146/80 94 Room Air 06/22 2000 78 06/22 1627 69 160/90 06/22 1442 69 20 160/90 96 Intake & Output 06/23 1600 06/23 0800 06/23 0000 Intake Total 240 340 Output Total Balance 240 340 Intake, Oral 240 340 Number 2 Bowel Movements Physical Exam General Appearance: Alert, Cooperative Other Physical Findings: Neurological: Normal Gait, Normal Tone, Sensation Intact, Cranial Nerves 3-12 NL , Reflexes 2+, nonfluent aphasia good comprehension able to follow most commonds , unable to protude tounge, R facial droop Other Physical Findings: Extremities: Venous stasis hyper pigmentary changes in the lower legs and feet, right fourth toe amputation, calluses extending from between the first and second digit to the sole of the foot bilaterally Elongated toenails Current Medications: Current Medications Sig/Cristiano Start time Last Medication Dose Route Stop Time Status Admin Acetaminophen 650 MG Q6P PRN 06/21 2245 AC PO Acetaminophen 1,000 MG Q6P PRN 06/21 2245 AC IV Aspirin 325 MG DAILY 06/22 1426 AC 06/23 PO 1001 Aspirin 300 MG DAILY 06/22 1000 DC NE Atorvastatin Calcium 80 MG 1700 06/22 1700 AC 06/22 PO 1626 Ceftriaxone Sodium 1,000 MG 2200 06/22 2200 AC 06/22 IV 2049 Dextrose/Sodium 1,000 ML Q13H 06/22 0630 DC 06/22 Chloride IV 0804 Heparin Sodium 5,000 UNIT Q8 06/22 0023 AC 06/23 (Porcine) SC 0614 Insulin Aspart 0 TIDAC 06/23 0800 AC SC Insulin Aspart 0 TIDAC 06/23 0800 AC SC Insulin Human Regular 0 Q6 06/22 0012 DC SC Lisinopril 5 MG DAILY 06/22 1447 AC 06/23 PO 1002 Last 24 Hrs of Lab/Lasha Results Last 24 Hrs of Labs/Mics: Laboratory Tests 06/23/17 0605: Anion Gap 12, Estimated GFR > 60, BUN/Creatinine Ratio 13.0, CBC w Diff NO MAN DIFF REQ, RBC 4.89, MCV 93.3, MCH 31.4 H, RDW 13.2, MPV 9.1, Gran % 64.5, Lymphocytes % 26.3, Monocytes % 6.0, Eosinophils % 2.5, Basophils % 0.7, Absolute Granulocytes 4.3, Absolute Lymphocytes 1.7, Absolute Monocytes 0.4, Absolute Eosinophils 0.2, Absolute Basophils 0, PUBS MCHC 33.7 Assessment/Plan Assessment: Patient is a 62 y old M with PMH of DM, HTN, HLD; no compliance for the past 2 yrs presented with expressive aphasia and right facial droop of unknown duration. Vital sign on presentation did show high blood pressure 187/111mmHg better after giving IV labetalol, labs were unremarkable. CT head and CT angio did show MCA stroke with Left MCA occlusion in M1 territory with reconstitution of distal half these findings can be chronic. There is hypodensity in left basal ganglia which could represent subacute vs acute stroke. #Subacute left MCA ischemic stroke unknown timeline. presented with expressive aphasia, Noncompliant with antihypertensives and antiepileptics for the past 2 years. Family history of aneurysm of brain. Underwent right carotid endarterectomy in the 2012. Failed bedside swallow evaluation * Aspirin, high-dose statin and s/q heparin * Neurology consulted, reccs appreciated * Brain MRI without contrast done see report for results * Neurochecks every 2hrs * Modified barium swallow passed pt on chopped food * PT/OT eval pt requirs STR * Stroke education and speech therapy #Left carotid stenosis Of note pt is s/p right carotid endarterectomy [place] [address] Schmidt for asymptomatic carotid stenosis * CT angiogram of neck consistent with 80-90% stenosis of left carotid artery * Ultrasound carotid :Hemodynamically significant stenoses consistent with a 50- 79% diameter reduction of the proximal left internal carotid artery * Vascular surgical consulted : Because of the occlusion of the M1 segment, the patient is not a candidate for carotid endarterectomy at this time. #Alcohol withdrawal :Patient has been consuming alcohol on a daily basis as per the family. CIWA running low 0,1,1,1 * low dose CIWA #Hypertension Received 1 dose of IV labetalol in ER. Goal is to maintain 140-160 /90mmHg. * Permissive hypertension for 24 hours #Suspected UTI Patient dirty UA and was started on ceftriaxone IV, staph aureus growing in cultures, pt remains afebrile and without white count and offers no urinary symptoms * Watch off antibiotics #Diabetes Not on medications since long time. * Hba1c 7.6 * Insulin SS as per endo reccs #DVT prophylaxis SC heparin #Code status full Code Problem List: 1. CVA (cerebral vascular accident) Pain Ratin Pain Location: n/a Pain Goal: Pain 4 or less Pain Plan: prn Tomorrow's Labs & Rationales: cbc bep Discharge Plan Discharge Disposition: STR/NH Winter HUNTER,Amir 06/23/17 1029: Attending MD Review Statement Attending Statement Attending MD Statement: examined this patient, discuss w/resident/PA/RESERVATION AGENT, agreed w/resident/PA/RESERVATION AGENT, reviewed EMR data (avail), discussed with nursing Attending Assessment/Plan: Mr. Joy is a 62 yo man with PMHx of HTN, DM, s/p R CEA, non-complaint with meds p/w AMS. Diagnostic studies indicated subacute left MCA infarct, CTA of the neck showed significant stenosis of the left proximal ICA as well as proximal occlusion of M1 segment. Evaluated by Cards, Endo, Neurology, and Vascular Surgery. Pt not a surgical candidate and currently being managed medically. He passed his swallow eval. Cont to monitor -- cont IV abx to treat UTI -- f/u Urine C&S
--- NOTE | 2017-06-23 12:30 | PN- Diabetes ---
Assessment/Plan Assessment: Patient is a 62-year-old male with PMH significant for CAD, HTN, dyslipidemia, DM type 2 on diet control, right carotid endarterectomy performed (2012 for nonsymptomatic severe carotid stenosis) was BIBA to hospital for evaluation of altered mental status. He was admitted for acute infarct in the left middle cerebral artery territory. He was put on Novolog coverage before meals and Novolog coverage at bedtime. His FSGs were 104, 99, 153, 165 and 120. Plan: 1. change diet to consistent carbohydrates 1 diet; 2. continue the current Novolog coverage before meals and Novolog coverage at bedtime; 3. monitor FSGs. will follow. Subjective Subjective: He feels okay this morning. Objective Last 24 Hrs of Vital Signs/I&O Vital Signs Date Time Temp Pulse Resp B/P B/P Pulse O2 O2 Flow FiO2 Mean Ox Delivery Rate 06/23 1002 69 118/62 06/23 0634 96.4 69 20 118/82 95 Room Air 06/23 0000 80 06/22 2220 97.6 74 20 146/80 94 Room Air 06/22 2000 78 06/22 1627 69 160/90 06/22 1442 69 20 160/90 96 Intake & Output 06/23 1600 06/23 0800 06/23 0000 Intake Total 300 240 340 Output Total Balance 300 240 340 Intake, Oral 300 240 340 Number 1 2 Bowel Movements Findings Pertinent Lab/Lasha Results: Laboratory Tests 06/23 0605 Chemistry Sodium (137 - 145 mmol/L) 140 Potassium (3.5 - 5.1 mmol/L) 3.9 Chloride (98 - 107 mmol/L) 102 Carbon Dioxide (22 - 30 mmol/L) 25 Anion Gap (5 - 16) 12 BUN (9 - 20 mg/dL) 13 Creatinine (0.7 - 1.2 mg/dL) 1.0 Estimated GFR (>60 ml/min) > 60 BUN/Creatinine Ratio (7 - 25 %) 13.0 Hematology CBC w Diff NO MAN DIFF REQ WBC (4.8 - 10.8 /CUMM) 6.6 RBC (4.70 - 6.10 /CUMM) 4.89 Hgb (14.0 - 18.0 G/DL) 15.4 Hct (42 - 52 %) 45.6 MCV (80.0 - 94.0 FL) 93.3 MCH (27.0 - 31.0 PG) 31.4 H RDW (11.5 - 14.5 %) 13.2 Plt Count (130 - 400 /CUMM) 177 MPV (7.4 - 10.4 FL) 9.1 Gran % (42.2 - 75.2 %) 64.5 Lymphocytes % (20.5 - 51.1 %) 26.3 Monocytes % (1.7 - 9.3 %) 6.0 Eosinophils % (0 - 5 %) 2.5 Basophils % (0.0 - 2.0 %) 0.7 Absolute Granulocytes (1.4 - 6.5 /CUMM) 4.3 Absolute Lymphocytes (1.2 - 3.4 /CUMM) 1.7 Absolute Monocytes (0.10 - 0.60 /CUMM) 0.4 Absolute Eosinophils (0.0 - 0.7 /CUMM) 0.2 Absolute Basophils (0.0 - 0.2 /CUMM) 0 PUBS MCHC (33.0 - 37.0 G/DL) 33.7
[2017-06-23 15:20] VITALS: BP 114/68
--- NOTE | 2017-06-23 22:00 | PN- Neurology ---
Subjective Subjective: walked with PT Speech improving Objective Vital Signs and I&Os Vital Signs Date Time Temp Pulse Resp B/P B/P Pulse O2 O2 Flow FiO2 Mean Ox Delivery Rate 06/23 1520 98.7 65 18 114/68 94 06/23 1002 69 118/62 06/23 0634 96.4 69 20 118/82 95 Room Air 06/23 0000 80 06/22 2220 97.6 74 20 146/80 94 Room Air Intake & Output 06/23 1600 06/23 0800 06/23 0000 06/22 1600 06/22 0800 06/22 0000 Intake Total 300 240 340 Output Total Balance 300 240 340 Intake, Oral 300 240 340 Number 1 2 Bowel Movements Patient 190 lb 190 lb Weight Weight Estimated Estimated Measurement Method Physical Exam: awake alert Moderate non fluent aphasia Able to read some words on his newspaper with good intelligibility. Does make some paraphasic errors. Good comprehension mild to moderate right lower facial weakness Current Medications: Current Medications Sig/Cristiano Start time Last Medication Dose Route Stop Time Status Admin Acetaminophen 650 MG Q6P PRN 06/21 2245 AC PO Acetaminophen 1,000 MG Q6P PRN 06/21 2245 AC IV Aspirin 325 MG DAILY 06/22 1426 AC 06/23 PO 1001 Atorvastatin Calcium 80 MG 1700 06/22 1700 AC 06/23 PO 2057 Ceftriaxone Sodium 1,000 MG 0 06/23 2200 AC 06/23 IV 2123 Ceftriaxone Sodium 1,000 MG 06/22 2200 DC 06/22 IV 2049 Heparin Sodium 5,000 UNIT Q8 06/22 0023 AC 06/23 (Porcine) SC 3 Insulin Aspart 0 TIDAC/HS 06/23 1200 CAN SC Insulin Aspart 0 TIDAC/HS 06/23 1200 AC SC Insulin Aspart 0 TIDAC 06/23 0800 DC SC Insulin Aspart 0 TIDAC 06/23 0800 DC SC Lisinopril 5 MG DAILY 06/22 1447 AC 06/23 PO 1002 Results Last 24 Hours of Lab Results: Laboratory Tests 06/23 0605 Chemistry Sodium (137 - 145 mmol/L) 140 Potassium (3.5 - 5.1 mmol/L) 3.9 Chloride (98 - 107 mmol/L) 102 Carbon Dioxide (22 - 30 mmol/L) 25 Anion Gap (5 - 16) 12 BUN (9 - 20 mg/dL) 13 Creatinine (0.7 - 1.2 mg/dL) 1.0 Estimated GFR (>60 ml/min) > 60 BUN/Creatinine Ratio (7 - 25 %) 13.0 Hematology CBC w Diff NO MAN DIFF REQ WBC (4.8 - 10.8 /CUMM) 6.6 RBC (4.70 - 6.10 /CUMM) 4.89 Hgb (14.0 - 18.0 G/DL) 15.4 Hct (42 - 52 %) 45.6 MCV (80.0 - 94.0 FL) 93.3 MCH (27.0 - 31.0 PG) 31.4 H RDW (11.5 - 14.5 %) 13.2 Plt Count (130 - 400 /CUMM) 177 MPV (7.4 - 10.4 FL) 9.1 Gran % (42.2 - 75.2 %) 64.5 Lymphocytes % (20.5 - 51.1 %) 26.3 Monocytes % (1.7 - 9.3 %) 6.0 Eosinophils % (0 - 5 %) 2.5 Basophils % (0.0 - 2.0 %) 0.7 Absolute Granulocytes (1.4 - 6.5 /CUMM) 4.3 Absolute Lymphocytes (1.2 - 3.4 /CUMM) 1.7 Absolute Monocytes (0.10 - 0.60 /CUMM) 0.4 Absolute Eosinophils (0.0 - 0.7 /CUMM) 0.2 Absolute Basophils (0.0 - 0.2 /CUMM) 0 PUBS MCHC (33.0 - 37.0 G/DL) 33.7 Recent Imaging Studies: MRI of the brain demonstrates subacute infarct in the left MCA territory old infarct in the right MCA territory carotid ultrasound: IMPRESSION: Hemodynamically significant stenoses consistent with a 50-79% diameter reduction of the proximal left internal carotid artery. On the CTA performed earlier today, the stenosis in the internal carotid was thought to be 80-90%. A hemodynamically significant stenosis of greater than 50% is not present on the right. DICTATED BY: Vernon Garcia MD DATE/TIME DICTATED:06/22/171637 Echocardiogram: FINDINGS Left Ventricle Normal size left ventricle. Left ventricular wall thickness at upper limits of normal. Normal left ventricular ejection fraction visually estimated at >65 %. No obvious regional wall motion abnormalities. Normal left ventricular diastolic filling pattern for age. Assessment/Plan Assessment: left MCA territory ischemic stroke Hemodynamically significant left internal carotid artery stenosis with tandem left M1 intracranial stenosis. Seen by the vascular surgeon, who is not in favor of carotid endarterectomy given the tandem intracranial lesion Plan: continue antiplatelets and statin therapy stroke education smoking cessation PT OT [facility]
[2017-06-23 22:25] VITALS: BP 124/74
[2017-06-24 06:28] VITALS: BP 140/82
--- NOTE | 2017-06-24 07:25 | PN- Housestaff ---
[place] 06/24/17 0725: Subjective Follow-up For: Ischemic stroke Subjective: No overnight events. Patient remained afebrile overnight. Seen and examined this morning bedside. He was lying in bed comfortably. Denied any chest pain, short of breath, nausea, vomiting, chills, fever, abdominal pain and dysuria. Patient having non fluent aphasia he is not able to complete sentences but his comprehension is normal. He is following the commands. Review of Systems Constitutional: Reports: no symptoms. EENTM: Reports: no symptoms. Cardiovascular: Reports: no symptoms. Respiratory: Reports: no symptoms. Gastrointestinal: Reports: no symptoms. Genitourinary: Reports: no symptoms. Musculoskeletal: Reports: no symptoms. Neurological/Psychological: Reports: no symptoms. Objective Last 24 Hrs of Vital Signs/I&O Vital Signs Date Time Temp Pulse Resp B/P B/P Pulse O2 O2 Flow FiO2 Mean Ox Delivery Rate 06/24 0937 68 140/82 06/24 0628 97.5 68 16 140/82 94 Room Air 06/23 2225 98.4 65 20 124/74 94 Room Air 06/23 1520 98.7 65 18 114/68 94 Intake & Output 06/24 1600 06/24 0800 06/24 0000 Intake Total 240 135 Output Total Balance 240 135 Intake, IV 15 Intake, Oral 240 120 Number 4 Bowel Movements Patient 190 lb Weight Physical Exam General Appearance: Alert, Oriented X3, Cooperative, No Acute Distress Skin Temp/Moisture Exam: Warm/Dry HEENT: Atraumatic, PERRLA, EOMI Neck: Supple Cardiovascular: Normal S1, Normal S2 Lungs: Clear to Auscultation Abdomen: Soft, No Tenderness Neurological: Normal Tone, upper exterimities 4/5 , lower exterimities 5/5 Extremities: No Edema Assessment/Plan Assessment: Patient is a 62 y old M with PMH of DM, HTN, HLD; no compliance for the past 2 yrs presented with expressive aphasia and right facial droop of unknown duration. Vital sign on presentation did show high blood pressure 187/111mmHg better after giving IV labetalol, labs were unremarkable. CT head and CT angio did show MCA stroke with Left MCA occlusion in M1 territory with reconstitution of distal half these findings can be chronic. There is hypodensity in left basal ganglia which could represent subacute vs acute stroke. Subacute left MCA ischemic stroke: unknown timeline. presented with expressive aphasia, Noncompliant with antihypertensives and antiepileptics for the past 2 years. Family history of aneurysm of brain. Underwent right carotid endarterectomy in the 2012. Failed bedside swallow evaluation -Aspirin, high-dose statin and s/q heparin -Neurology consulted, reccs appreciated -Brain MRI without contrast done see report for results -Modified barium swallow passed pt on chopped food -PT/OT eval pt requirs STR -Stroke education and speech therapy Left carotid stenosis: Of note pt is s/p right carotid endarte[place] [address] Schmidt for asymptomatic carotid stenosis -CT angiogram of neck consistent with 80-90% stenosis of left carotid artery -Ultrasound carotid :Hemodynamically significant stenoses consistent with a 50- 79% diameter reduction of the proximal left internal carotid artery -Vascular surgical consulted. Because of the occlusion of the M1 segment, the patient is not a candidate for carotid endarterectomy at this time. patient will benefit from aspirin and atorvastatin. Alcohol withdrawal : -Patient has been consuming alcohol on a daily basis as per the family. CIWA running low 0,1,1,1 -low dose CIWA Hypertension: -Received 1 dose of IV labetalol in ER. Goal is to maintain 140-160/90mmHg. -Permissive hypertension for 24 hours Suspected UTI: Patient dirty UA and was started on ceftriaxone IV, staph aureus growing in cultures, pt remains afebrile and without white count and offers no urinary symptoms -Watch off antibiotics Diabetes: -Not on medications since long time. -Hba1c 7.6 -Insulin SS as per endo reccs DVT prophylaxis: Mechanical and SC heparin Code status: full Code Problem List: 1. CVA (cerebral vascular accident) Pain Ratin Pain Location: none Pain Goal: Remain pain free Pain Plan: tylenol fo mild pain Tomorrow's Labs & Rationales: cbc/bep Winter HUNTER,Amir 06/24/17 1111: Attending MD Review Statement Attending Statement Attending MD Statement: examined this patient, discuss w/resident/PA/COMMUTATOR INSPECTOR, agreed w/resident/PA/COMMUTATOR INSPECTOR, reviewed EMR data (avail), discussed with nursing Attending Assessment/Plan: Pt was seen and evalauted. Was tx to Gen med floor. No overnight issues. Tolerating meds and working with OT. Was also evaluated by Neurology. Agree with PT/OT Cont to titrate insulin as needed
[2017-06-24 09:10] LABS: ABSOLUTE BASOPHIL COUNT 0.1 /CUMM (0.0-0.2); ABSOLUTE EOSINOPHIL COUNT 0.2 /CUMM (0.0-0.7); ABSOLUTE LYMPH COUNT 2.1 /CUMM (1.2-3.4); ABSOLUTE MONOCYTE COUNT 0.4 /CUMM (0.10-0.60); BASOPHIL % 0.8 % (0.0-2.0); EOSINOPHIL % 2.6 % (0-5); GRANULOCYTE % 59.6 % (42.2-75.2); HEMATOCRIT 47.6 % (42-52); MEAN CORPUSCULAR HGB 31.1 PG (27.0-31.0); MEAN CORPUSCULAR HGB CONC 33.1 G/DL (33.0-37.0); MEAN CORPUSCULAR VOLUME 93.9 FL (80.0-94.0); MEAN PLATELET VOLUME 8.7 FL (7.4-10.4); PLATELET COUNT 189 /CUMM (130-400); RED BLOOD CELL CT 5.07 /CUMM (4.70-6.10); WHITE BLOOD CELL COUNT 6.6 /CUMM (4.8-10.8)
--- NOTE | 2017-06-24 10:45 | PN- Diabetes ---
Assessment/Plan Assessment: Patient is a 62-year-old male with PMH significant for CAD, HTN, dyslipidemia, DM type 2 on diet control, right carotid endarterectomy performed (2012 for nonsymptomatic severe carotid stenosis) was BIBA to hospital for evaluation of altered mental status. He was admitted for acute infarct in the left middle cerebral artery territory. He was put on Novolog coverage before meals and Novolog coverage at bedtime. His FSGs were 120, 97, 111 and 109. Plan: continue the current Novolog coverage for now; monitor FSGs. will follow. Subjective Subjective: He has no special complaints this morning. Objective Last 24 Hrs of Vital Signs/I&O Vital Signs Date Time Temp Pulse Resp B/P B/P Pulse O2 O2 Flow FiO2 Mean Ox Delivery Rate 06/24 0937 68 140/82 06/24 0628 97.5 68 16 140/82 94 Room Air 06/23 2225 98.4 65 20 124/74 94 Room Air 06/23 1520 98.7 65 18 114/68 94 Intake & Output 06/24 1600 06/24 0800 06/24 0000 Intake Total 240 135 Output Total Balance 240 135 Intake, IV 15 Intake, Oral 240 120 Number 4 Bowel Movements Patient 190 lb Weight Findings Pertinent Lab/Lasha Results: Laboratory Tests 06/24 0835 Hematology CBC w Diff NO MAN DIFF REQ WBC (4.8 - 10.8 /CUMM) 6.6 RBC (4.70 - 6.10 /CUMM) 5.07 Hgb (14.0 - 18.0 G/DL) 15.8 Hct (42 - 52 %) 47.6 MCV (80.0 - 94.0 FL) 93.9 MCH (27.0 - 31.0 PG) 31.1 H RDW (11.5 - 14.5 %) 13.0 Plt Count (130 - 400 /CUMM) 189 MPV (7.4 - 10.4 FL) 8.7 Gran % (42.2 - 75.2 %) 59.6 Lymphocytes % (20.5 - 51.1 %) 31.1 Monocytes % (1.7 - 9.3 %) 5.9 Eosinophils % (0 - 5 %) 2.6 Basophils % (0.0 - 2.0 %) 0.8 Absolute Granulocytes (1.4 - 6.5 /CUMM) 4.0 Absolute Lymphocytes (1.2 - 3.4 /CUMM) 2.1 Absolute Monocytes (0.10 - 0.60 /CUMM) 0.4 Absolute Eosinophils (0.0 - 0.7 /CUMM) 0.2 Absolute Basophils (0.0 - 0.2 /CUMM) 0.1 PUBS MCHC (33.0 - 37.0 G/DL) 33.1
[2017-06-24 15:33] VITALS: BP 116/76
[2017-06-24 22:45] VITALS: BP 138/80
[2017-06-25 06:51] VITALS: BP 142/86
--- NOTE | 2017-06-25 08:55 | PN- Housestaff ---
Evan HUNTER,Evan 06/25/17 0855: Subjective Follow-up For: Ischemic stroke UTI Subjective: Patient was seen and examined at bedside. He is resting comfortably. He had no acute events overnight. Patient was mildly confused on interview, however was able to answer questions appropriately. He currently offers no complaints and denies any headache, visual changes, numbness, weakness, nausea, vomiting, fever , chills, dysuria, hematuria. Review of Systems Constitutional: Denies: chills, fever. EENTM: Reports: no symptoms. Cardiovascular: Denies: chest pain, palpitations. Respiratory: Denies: cough, short of breath. Gastrointestinal: Reports: no symptoms. Genitourinary: Denies: dysuria, frequency, hematuria. Musculoskeletal: Reports: no symptoms. Objective Last 24 Hrs of Vital Signs/I&O Vital Signs Date Time Temp Pulse Resp B/P B/P Pulse O2 O2 Flow FiO2 Mean Ox Delivery Rate 06/25 0724 98.4 63 19 142/86 06/25 0651 98.4 63 19 142/86 95 Room Air 06/24 2245 98.2 68 19 138/80 95 Room Air 06/24 1533 97.3 66 18 116/76 95 06/24 0937 68 140/82 Intake & Output 06/25 1600 06/25 0800 06/25 0000 Intake Total 120 Output Total Balance 120 Intake, Oral 120 Physical Exam General Appearance: Alert, Cooperative, No Acute Distress, orietned to preson and place but not time Skin Temp/Moisture Exam: Warm/Dry Sepsis Skin Exam (color): Normal for Ethnicity HEENT: Atraumatic, PERRLA, EOMI, Mucous Membr. moist/pink Cardiovascular: Normal S1, Normal S2, No Murmurs Lungs: Clear to Auscultation, Normal Air Movement Abdomen: Normal Bowel Sounds, Soft, No Tenderness Neurological: 4/5 strength of the RUE, 5/5 strength of other extremities, some R sided facial weakness; pt unable to puff out R cheek and smile is assymetric Extremities: No Clubbing, No Cyanosis, No Edema Current Medications: Current Medications Sig/Cristiano Start time Last Medication Dose Route Stop Time Status Admin Acetaminophen 650 MG Q6P PRN 06/21 2245 AC PO Acetaminophen 1,000 MG Q6P PRN 06/21 2245 AC IV Aspirin 325 MG DAILY 06/22 1426 AC 06/25 PO 0725 Atorvastatin Calcium 80 MG 1700 06/22 1700 AC 06/24 PO 1641 Ceftriaxone Sodium 1,000 MG 2200 06/23 2200 AC 06/24 IV 2104 Heparin Sodium 5,000 UNIT Q8 06/22 0023 AC 06/24 (Porcine) SC 2103 Insulin Aspart 0 TIDAC/HS 06/23 1200 AC SC Lisinopril 5 MG DAILY 06/22 1447 AC 06/25 PO 0724 Last 24 Hrs of Lab/Lasha Results Last 24 Hrs of Labs/Mics: Laboratory Tests 06/25/17 0839: Anion Gap 10, Estimated GFR > 60, BUN/Creatinine Ratio 17.0 Assessment/Plan Assessment: Patient is a 62 y old M with PMH of DM, HTN, HLD; no compliance for the past 2 yrs presented with expressive aphasia and right facial droop of unknown duration. Vital sign on presentation did show high blood pressure 187/111mmHg better after giving IV labetalol, labs were unremarkable. CT head and CT angio did show MCA stroke with Left MCA occlusion in M1 territory with reconstitution of distal half these findings can be chronic. There is hypodensity in left basal ganglia which could represent subacute vs acute stroke. Subacute left MCA ischemic stroke: unknown timeline. presented with expressive aphasia, Noncompliant with antihypertensives and antiepileptics for the past 2 years. Family history of aneurysm of brain. Underwent right carotid endarterectomy in the 2012. Failed bedside swallow evaluation -Aspirin, high-dose statin and s/q heparin -Neurology consulted, reccs appreciated -Brain MRI without contrast done see report for results -Modified barium swallow passed pt on chopped food -PT/OT eval pt requires STR -Stroke education and speech therapy Left carotid stenosis: Of note pt is s/p right carotid endarterectomy [place] [address] Schmidt for asymptomatic carotid stenosis -CT angiogram of neck consistent with 80-90% stenosis of left carotid artery -Ultrasound carotid :Hemodynamically significant stenoses consistent with a 50- 79% diameter reduction of the proximal left internal carotid artery -Vascular surgical consulted. Because of the occlusion of the M1 segment, the patient is not a candidate for carotid endarterectomy at this time. patient will benefit from aspirin and atorvastatin. Alcohol withdrawal : -CIWA was DCed Hypertension: -Received 1 dose of IV labetalol in ER. Goal is to maintain 140-160/90mmHg. -Permissive hypertension for 24 hours UTI: Patient dirty UA and was started on ceftriaxone IV, staph aureus growing in cultures, pt remains afebrile and without white count -Continue IV ceftriaxone, day 3, for total of 5-7 day course Diabetes: -Hba1c 7.6 -Insulin SS as per endo recs -Given the patient's fingerstick glucoses have remained under control patient will be discharged with diet control and not on any hypoglycemic medicine DVT prophylaxis: Mechanical and SC heparin Code status: full Code Problem List: 1. UTI (urinary tract infection) 2. CVA (cerebral vascular accident) 3. Carotid artery stenosis Pain Ratin Pain Location: none Pain Goal: Remain pain free Pain Plan: pain pathway Tomorrow's Labs & Rationales: cbc, bep Winter HUNTER,Amir 06/25/17 1122: Attending MD Review Statement Attending Statement Attending MD Statement: examined this patient, discuss w/resident/PA/VICE PRESIDENT OF ENGINEERING, agreed w/resident/PA/VICE PRESIDENT OF ENGINEERING, reviewed EMR data (avail) Attending Assessment/Plan: Pt was seen and evalauted. No overnight issues. Tolerating meds and working with OT. Was also evaluated by Neurology. Urine Cx c/w MSSA. Cont IV abx for total of 5-7 days Agree with PT/OT Cont to titrate insulin as needed plan d/w the team. Rest of the plan as per resident's note
--- NOTE | 2017-06-25 11:08 | PN- Diabetes ---
Assessment/Plan Assessment: Patient is a 62-year-old male with PMH significant for CAD, HTN, dyslipidemia, DM type 2 on diet control, right carotid endarterectomy performed (2012 for nonsymptomatic severe carotid stenosis) was BIBA to hospital for evaluation of altered mental status. He was admitted for acute infarct in the left middle cerebral artery territory. He was put on Novolog coverage before meals and Novolog coverage at bedtime. His FSGs were 109, 106, 85, 129 and 95. Plan: ---continue the current Novolog coverage only when his FSG is above 150 while he is in hospital; ---however, patient's glucose level has been less than 150 in hospital. I will recommend diet control only for discharge; ---please contact me if the further assistance needed. Subjective Subjective: He has no special complaints at this point. Objective Last 24 Hrs of Vital Signs/I&O Vital Signs Date Time Temp Pulse Resp B/P B/P Pulse O2 O2 Flow FiO2 Mean Ox Delivery Rate 06/25 0724 98.4 63 19 142/86 06/25 0651 98.4 63 19 142/86 95 Room Air 06/24 2245 98.2 68 19 138/80 95 Room Air 06/24 1533 97.3 66 18 116/76 95 Intake & Output 06/25 1600 06/25 0800 06/25 0000 Intake Total 120 Output Total Balance 120 Intake, Oral 120 Findings Pertinent Lab/Lasha Results: Laboratory Tests 06/25 0839 Chemistry Sodium (137 - 145 mmol/L) 135 L Potassium (3.5 - 5.1 mmol/L) 4.0 Chloride (98 - 107 mmol/L) 100 Carbon Dioxide (22 - 30 mmol/L) 24 Anion Gap (5 - 16) 10 BUN (9 - 20 mg/dL) 17 Creatinine (0.7 - 1.2 mg/dL) 1.0 Estimated GFR (>60 ml/min) > 60 BUN/Creatinine Ratio (7 - 25 %) 17.0
[2017-06-25 15:09] VITALS: BP 138/80
[2017-06-25 22:09] VITALS: BP 122/70
[2017-06-26 07:00] VITALS: BP 120/68
--- NOTE | 2017-06-26 07:31 | PN- Housestaff ---
[place] 06/26/17 0730: Subjective Follow-up For: Ischemic stroke UTI Subjective: No overnight events. Patient remained afebrile overnight. Seen and examined this morning. He denied any chest pain, short of breath, nausea, vomiting, chills, fever, abdominal pain dysuria. Patient having weakness of upper extremity especially on the right side. Lower extremity power is normal. And also having nonfluent aphasia. Review of Systems Constitutional: Reports: no symptoms. EENTM: Reports: no symptoms. Cardiovascular: Reports: no symptoms. Respiratory: Reports: no symptoms. Gastrointestinal: Reports: no symptoms. Genitourinary: Reports: no symptoms. Musculoskeletal: Reports: see HPI. Neurological/Psychological: Reports: no symptoms. Objective Last 24 Hrs of Vital Signs/I&O Vital Signs Date Time Temp Pulse Resp B/P B/P Pulse O2 O2 Flow FiO2 Mean Ox Delivery Rate 06/26 0849 64 120/68 06/26 0700 97.9 64 16 120/68 95 Room Air 06/25 2209 98.3 64 20 122/70 94 06/25 1509 98.1 65 18 138/80 97 Room Air Intake & Output 06/26 1600 06/26 0800 06/26 0000 Intake Total 240 600 Output Total 200 600 400 Balance -200 -360 200 Intake, Oral 240 600 Output, Urine 200 600 400 Physical Exam General Appearance: Alert, Oriented X3, Cooperative, No Acute Distress Skin Temp/Moisture Exam: Warm/Dry HEENT: Atraumatic, PERRLA, EOMI Neck: Supple Cardiovascular: Normal S1, Normal S2 Lungs: Clear to Auscultation Abdomen: Soft, No Tenderness Neurological: Normal Tone, Sensation Intact, upper extrimities 3-4/5, lower extrimities 5/5 Extremities: No Edema, fungal infection of the feet Assessment/Plan Assessment: Patient is a 62 y old M with PMH of DM, HTN, HLD; no compliance for the past 2 yrs presented with expressive aphasia and right facial droop of unknown duration. Vital sign on presentation did show high blood pressure 187/111mmHg better after giving IV labetalol, labs were unremarkable. CT head and CT angio did show MCA stroke with Left MCA occlusion in M1 territory with reconstitution of distal half these findings can be chronic. There is hypodensity in left basal ganglia which could represent subacute vs acute stroke. Subacute left MCA ischemic stroke: unknown timeline. presented with expressive aphasia, Noncompliant with antihypertensives and antiepileptics for the past 2 years. Family history of aneurysm of brain. Underwent right carotid endarterectomy in the 2012. Failed bedside swallow evaluation -Aspirin, high-dose statin and s/q heparin -Neurology consulted, reccs appreciated -Brain MRI without contrast done see report for results -Modified barium swallow passed pt on chopped food -PT/OT eval pt requires STR -Stroke education and speech therapy Left carotid stenosis: Of note pt is s/p right carotid endarterectomy [place] [address] Schmidt for asymptomatic carotid stenosis -CT angiogram of neck consistent with 80-90% stenosis of left carotid artery -Ultrasound carotid :Hemodynamically significant stenoses consistent with a 50- 79% diameter reduction of the proximal left internal carotid artery -Vascular surgical consulted. Because of the occlusion of the M1 segment, the patient is not a candidate for carotid endarterectomy at this time. patient will benefit from aspirin and atorvastatin. Alcohol withdrawal : -CIWA was DCed Hypertension: -Received 1 dose of IV labetalol in ER. Goal is to maintain 140-160/90mmHg. -Permissive hypertension for 24 hours UTI: Patient dirty UA and was started on ceftriaxone IV, staph aureus growing in cultures, pt remains afebrile and without white count -urine culture is positive with staph areus so we will change ceftriaxone to augmentin po for 3 days. Diabetes: -Hba1c 7.6 -Insulin SS as per endo recs -Given the patient's fingerstick glucoses have remained under control patient will be discharged with diet control and not on any hypoglycemic medicine DVT prophylaxis: Mechanical and SC heparin Code status: full Code Problem List: 1. CVA (cerebral vascular accident) 2. UTI (urinary tract infection) Pain Ratin Pain Location: none Pain Goal: Remain pain free Pain Plan: tylenol for mild pain Tomorrow's Labs & Rationales: none Becky Winchester MD 06/26/17 1432: Attending MD Review Statement Attending Statement Attending MD Statement: examined this patient, discuss w/resident/PA/ASSISTANT [place] ATTORNEY, agreed w/resident/PA/ASSIST[employer] [place] ATTORNEY, reviewed EMR data (avail) Attending Assessment/Plan: 62M PMH HTN, DM, PVD, HLD, alcohol dependence, right carotid endartectomy admitted after presenting with confusion and expressive aphasia in the setting of acute left MCA stroke, not in window for tPA or endovascular intervention, failed initial bedside swallow exam, with 80-90% stenosis of left carotid artery. Much improved since last seen by me. Eating well and swallowing without difficulty. No complaints. 1. Acute left MCA stroke 2. Left carotid stenosis 3. Expressive aphasia 4. PVD 5. Staphylococcal UTI Plan - Stable for discharge to STR - Continue ASA 81mg and statin - Outpatient vascular surgery and cardiology - Will continue Augmentin to complete course for Staph UTI
[2017-06-26] MEDS ORDERED: ASPIRIN325 M2 PO (08:53)
[2017-06-26] MEDS ORDERED: LISINOPRIL5 M1 PO (08:53)
[2017-06-26] MEDS ORDERED: ATORVASTATIN CA80 M1 PO (08:53)
--- NOTE | 2017-06-26 08:59 | Patient Discharge Instructions ---
Discharge Instructions General Discharge Information You were seen/treated for: Ischemic stroke HTN Watch for these problems: Weakness, numbness, tingling, loss of consciousness, chest pain, nausea, vomiting, severe headache and sudden loss of vision. If you experience any of these symptoms please come to ED or call pcp Special Instructions: Follow up with pcp in one week. Follow up with access representative in one week. Follow up with vascular surgery in one week. Follow up with neurology in one week. -Please control your diet to control the blood sugar level as recommended by access representative. -Follow up with wound care/podiatry for feet care for callous. Diet Recommended Diet: Diabetic Activity Activity Self Limited: Yes Acute Coronary Syndrome Inclusion Criteria At DC or during hospital stay patient has or had the following: ACS DIAGNOSIS No Discharge Core Measures Meds if any: Prescribed or Continued at Discharge Meds if any: NOT Prescribed or Continued at Discharge Congestive Heart Failure Inclusion Criteria At DC or during hospital stay patient has or had the following: CHF DIAGNOSIS No Discharge Core Measures Meds if any: Prescribed or Continued at Discharge Meds if any: NOT Prescribed or Continued at Discharge Cerebrovascular accident Inclusion Criteria At DC or during hospital stay patient has or had the following: CVA/TIA Diagnosis Yes Discharge Core Measures Meds if any: Prescribed or Continued at Discharge Antithrombotic Yes Statin (required if LDL =>70) Yes Meds if any: NOT Prescribed or Continued at Discharge Venous thromboembolism Inclusion Criteria VTE Diagnosis No VTE Type NONE VTE Confirmed by (Test) NONE Discharge Core Measures - Per Current guidelines, there needs to be overlap - treatment for the first 5 days of Warfarin therapy. - If discharged on Warfarin prior to 5 days of - overlap therapy, the patient will need to be - assessed for post discharge needs including - *Post discharge parental anticoagulation - *Warfarin and/or parental anticoagulation education - *Follow up date to check INR post discharge At least 5 days overlap therapy as Inpatient No Meds if any: Prescribed or Continued at Discharge Note: Overlap Therapy is Warfarin and Anticoagulant Meds if any: NOT Prescribed or Continued at Discharge
--- NOTE | 2017-06-26 09:10 | Discharge Summary ---
Visit Information Visit Dates Admission Date: 06/21/17 Discharge Date: 06/27/17 Hospital Course Course Attending Physician: Dr. Winchester Primary Care Physician: Ana Grace APRN Hospital Course: Patient is a 62-year-old male with significant past medical history of coronary artery disease, hypertension, hyperlipidemia, diabetes, history of right-sided carotid endarterectomy (in 2012, by Dr. Olguin), to the hospital for expressive aphasia since 2 to 3 days. ED course -vital signs at the time of admission temperature 97.2, pulse 77, respiratory 20, blood pressure 187/111, SPO2 97% on room air.. Blood workup showed hemoglobin 16.5, hematocrit 50.1, granulocytes 63.3, platelet count 203, glucose 124, BUN 16, creatinine 1.0, GFR more than 60, serum sodium 139, potassium 3.9, anion gap 14, lactic acid 1.9, amylase 84, lipase 114, calcium 9.6,. On examination, he has only expressive aphasia and placed neurological exam was normal, chest clear, heart S1, S2 normal, extremity shows multiple [address] scan of the head was done which showed Subacute to chronic infarct of left basal ganglia on the left periventricular white matter. CTA of head and neck showed chronic microangiopathy with 80-90% stenosis of left internal carotid artery and occlusion of left M1 middle cerebral artery segment . He was given aspirin and admitted to telemetry floor for further evaluation and treatment. Subacute to chronic infarct of left basilar ganglia, with expressive aphasia - We took the consult from the neurologist and vascular surgeon. Advise for MRI of the brain and carotid Doppler.Carotid Doppler did not show any hemodynamically significant stenosis. MRI of brsin redemonstrate of acute infarct in the left middle cerebral artery territory involving the left donahue radiata, caudate head , lentiform nucleus, and left periatrial white matter. Barium swallow evaluation was done which did not show an in any evidence of tracheal aspiration or penetration.Discussed with vascular surgery advised because of the occlusion of the M1 segment, the patient is not a candidate for carotid endarterectomy at this time. Echo showed LVEF >65%,trace MR. We did PT and OT evaluation. Patient was transferred to general medicine after initial admission on telemetry. Patient's course and General medicine was uneventful. UTI Patient had pyuria, with moderate leukocyte esterase. Was started on ceftriaxone IV, grew staph aureus in cultures. Based on sensitivities antibiotic was changed from ceftriaxone to augmentin po for a total of 7 days of antibiotics. Diabetes mellitus Patient had hemoglobin A1c of 7.6. Insulin was started as per endocrinology recommendations. Patient did not require significant amounts of insulin during hospitalization. Therefore it was decided that patient will be discharged on lifestyle modifications and follow up with supervisor model making as an outpatient. Chronic medical conditions include hypertension, hyperlipidemia, diabetes We continued all home medication as before. Allergies: Coded Allergies: NO KNOWN ALLERGIES (05/12/13) NKDA PER POST OP ORDER SHEET OF 05/12/13 - [facility] Disposition Summary Disposition Principal Diagnosis: Subacute to chronic infarct of left basilar ganglia, with expressive aphasia - Additional Diagnosis: coronary artery disease, hypertension, hyperlipidemia, diabetes, history of right-sided carotid endarterectomy (in 2012, by Dr. Olguin) Discharge Disposition: SNF Discharge Instructions General Discharge Information Code Status: Full Code Patient's Diet: Diabetic and heart healthy diet Patient's Activity: as tolerated Follow-Up Instructions/Appts: Please follow-up with your PCP within a week of discharge Please follow-up with neurologist within a week of discharge Please take the medication as advised Medications at Discharge Discharge Medications: Start taking the following new medications: Atorvastatin Calcium (Atorvastatin Calcium) 80 MG TABLET 1 Tube ORAL DAILY Qty = 60 No Refills Comments: Last Taken: 06/26/17 Time: 6 pm Lisinopril (Lisinopril) 5 MG TABLET 1 Tablet ORAL DAILY Qty = 60 No Refills Comments: Last Taken: 06/27/17 Time: 9am Amoxicillin/Clavulanate Potass (Amox-Clav 875-125 MG Tablet) 875 MG-125 MG TABLET 1 Tablet ORAL TWICE DAILY Qty = 6 No Refills Comments: Last Taken: 06/27/17 Time: 9 am Aspirin (Aspirin*) 81 MG TAB.CHEW 1 Tablet ORAL DAILY Qty = 30 No Refills Copies To: Ana Grace APRN; Kimberly HUNTER,Cristhian; Andres HUNTER,Alexx; Christian HUNETR,Neeta Garcia
[2017-06-26 09:22] LABS: ABSOLUTE BASOPHIL COUNT 0.1 /CUMM (0.0-0.2); ABSOLUTE EOSINOPHIL COUNT 0.2 /CUMM (0.0-0.7); ABSOLUTE GRANULOCYTE CT 4.3 /CUMM (1.4-6.5); ABSOLUTE LYMPH COUNT 2.2 /CUMM (1.2-3.4); ABSOLUTE MONOCYTE COUNT 0.5 /CUMM (0.10-0.60); BASOPHIL % 0.9 % (0.0-2.0); EOSINOPHIL % 2.8 % (0-5); GRANULOCYTE % 59.5 % (42.2-75.2); HEMATOCRIT 46.5 % (42-52); MEAN CORPUSCULAR HGB 31.9 PG (27.0-31.0); MEAN CORPUSCULAR HGB CONC 34.2 G/DL (33.0-37.0); MEAN CORPUSCULAR VOLUME 93.4 FL (80.0-94.0); MEAN PLATELET VOLUME 8.7 FL (7.4-10.4); PLATELET COUNT 190 /CUMM (130-400); RED BLOOD CELL CT 4.98 /CUMM (4.70-6.10); WHITE BLOOD CELL COUNT 7.3 /CUMM (4.8-10.8)
[2017-06-26] MEDS ORDERED: AMOX-CLAV 875-1 EACH PO (10:18)
[2017-06-26] MEDS ORDERED: ASPIRIN81 M4 PO (10:28)
[2017-06-26 14:51] VITALS: BP 120/80
[2017-06-26 21:56] VITALS: BP 132/66
[2017-06-27 06:56] VITALS: BP 136/72
--- NOTE | 2017-06-27 06:57 | PN- Housestaff ---
See Addendum Subjective Follow-up For: Ischemic stroke UTI Subjective: No overnight events. Patient remained afebrile overnight. Seen and examined this morning. He denied any chest pain, short of breath, nausea, vomiting, abdominal pain and dysuria. Patient was staying overnight because he was waiting for bed placement in [facility]. Patient is going to be discharged today. Review of Systems Constitutional: Reports: no symptoms. EENTM: Reports: no symptoms. Cardiovascular: Reports: no symptoms. Respiratory: Reports: no symptoms. Gastrointestinal: Reports: no symptoms. Genitourinary: Reports: no symptoms. Musculoskeletal: Reports: no symptoms. Neurological/Psychological: Reports: no symptoms. Objective Last 24 Hrs of Vital Signs/I&O Vital Signs Date Time Temp Pulse Resp B/P B/P Pulse O2 O2 Flow FiO2 Mean Ox Delivery Rate 06/27 1059 60 132/70 06/27 0656 98.1 60 18 136/72 96 Room Air 06/26 2156 98.4 70 20 132/66 94 06/26 1451 97.9 120 20 120/80 98 Room Air 06/26 1257 Room Air Intake & Output 06/27 1600 06/27 0800 06/27 0000 Intake Total 480 800 Output Total 750 600 Balance -270 200 Intake, Oral 480 800 Output, Urine 750 600 Physical Exam General Appearance: Alert, Oriented X3, Cooperative, No Acute Distress Skin Temp/Moisture Exam: Warm/Dry HEENT: Atraumatic, PERRLA, EOMI Neck: Supple Cardiovascular: Normal S1, Normal S2 Lungs: Clear to Auscultation Abdomen: Soft, No Tenderness Neurological: NONFLUENT APHASIA, RIGHT UPPER LIMB 3-4/5, LOWER EXTRIMITIES 5/5 Extremities: No Edema Assessment/Plan Assessment: Patient is a 62 y old M with PMH of DM, HTN, HLD; no compliance for the past 2 yrs presented with expressive aphasia and right facial droop of unknown duration. Vital sign on presentation did show high blood pressure 187/111mmHg better after giving IV labetalol, labs were unremarkable. CT head and CT angio did show MCA stroke with Left MCA occlusion in M1 territory with reconstitution of distal half these findings can be chronic. There is hypodensity in left basal ganglia which could represent subacute vs acute stroke. Subacute left MCA ischemic stroke: unknown timeline. presented with expressive aphasia, Noncompliant with antihypertensives and antiepileptics for the past 2 years. Family history of aneurysm of brain. Underwent right carotid endarterectomy in the 2012. Failed bedside swallow evaluation -Aspirin, high-dose statin and s/q heparin -Neurology consulted, reccs appreciated -Brain MRI without contrast done see report for results -Modified barium swallow passed pt on chopped food -PT/OT eval pt requires STR -Stroke education and speech therapy Left carotid stenosis: Of note pt is s/p right carotid endarterectomy in [address] Schmidt for asymptomatic carotid stenosis -CT angiogram of neck consistent with 80-90% stenosis of left carotid artery -Ultrasound carotid :Hemodynamically significant stenoses consistent with a 50- 79% diameter reduction of the proximal left internal carotid artery -Vascular surgical consulted. Because of the occlusion of the M1 segment, the patient is not a candidate for carotid endarterectomy at this time. patient will benefit from aspirin and atorvastatin. Alcohol withdrawal : -CIWA was DCed Hypertension: -Received 1 dose of IV labetalol in ER. Goal is to maintain 140-160/90mmHg. -Permissive hypertension for 24 hours UTI: Patient dirty UA and was started on ceftriaxone IV, staph aureus growing in cultures, pt remains afebrile and without white count -urine culture is positive with staph areus so we will change ceftriaxone to augmentin po for 3 days. Diabetes: -Hba1c 7.6 -Insulin SS as per endo recs -Given the patient's fingerstick glucoses have remained under control patient will be discharged with diet control and not on any hypoglycemic medicine DVT prophylaxis: Mechanical and SC heparin Code status: full Code Problem List: 1. UTI (urinary tract infection) 2. CVA (cerebral vascular accident) Pain Ratin Pain Location: NONE Pain Goal: Remain pain free Pain Plan: TYLENOL FOR MILD PAIN Tomorrow's Labs & Rationales: NONE
[2017-06-27 12:18] VITALS: BP 132/70
[2017-06-27 12:19] VITALS: BP 132/70
== END 2017-06-27 13:37 | DRG 45 ==
LOC: ERH 19:30 → 2NA 22:36 → 1NO 22:36 → ERHI 22:36 → ENRESERV 22:59 → 1NO 06-22 01:28 → ENTRNSPT 06-23 12:25 → EDTRNSPTTYP 06-23 12:56 → EDTRNSPT 06-23 12:56 → EDTRNSPTSTS 06-23 13:08 → 2NA 06-23 13:32 → CMPTRNSPT 06-23 13:39 → 2NA 06-26 10:22 → ENPENDDIS 06-27 12:30 → 2NA 06-27 13:37
PROVIDERS: Dermatology; Internal Medicine; Physician Assistant
DX: I63.512 Cerebral infarction due to unspecified occlusion or stenosis of left middle cerebral artery (principal); I25.10 Atherosclerotic heart disease of native coronary artery without angina pectoris; R47.01 Aphasia; N39.0 Urinary tract infection, site not specified; R29.810 Facial weakness; I73.9 Peripheral vascular disease, unspecified; E78.5 Hyperlipidemia, unspecified; I65.22 Occlusion and stenosis of left carotid artery; B95.61 Methicillin susceptible Staphylococcus aureus infection as the cause of diseases classified elsewhere; E11.9 Type 2 diabetes mellitus without complications; I10 Essential (primary) hypertension; Z87.891 Personal history of nicotine dependence; Z91.19 Patient's noncompliance with other medical treatment and regimen
CPT/HCPCS: 1NSP; 2NASP; 70551; 87184; ERO; 36415; 74230; 80307; 81001; 82436; 87040; 87045; 87086; 87147; 93005; 93010; 93306; 96374; 96375; 97112-GO; 97116-GO; 97161-GP; 99291; G0480; J0696; J1644; J1815; J7042